=== PATIENT | female | born 1960 | race Caucasian/White ===

== ENCOUNTER 2019-12-06 01:51 | Inpatient (IN) | payer OTHER, SELFPAY ==
[2019-12-06] VITALS (18 sets, daily range): BP systolic 103–154; BP diastolic 50–72; PULSE 83–110; RESP 16–20; TEMP 36.8–39.4; O2SAT 92–98; BMI 32.8
--- NOTE | ~2019-12-06 | XR_ITS ---
EXAMINATION: XR chest 2V DATE: 12/06/2019 02:11 INDICATION: Cough. Shortness of breath. Fever. TECHNIQUE: Frontal and lateral views of the chest were obtained. COMPARISON: None. FINDINGS: There are airspace opacities in right mid and lower lung zones and left lower lung zone. No pleural effusion or pneumothorax. The heart size is normal. IMPRESSION: 1. Airspace opacities in right mid and lower lung zones and left lower lung zone, consistent with pne umonia. Reviewed, dictated and finalized at location A. IMPRESSION: 1. Airspace opacities in right mid and lower lung zones and left lower lung zon e, consistent with pneumonia.
--- NOTE | ~2019-12-06 | XR_ITS ---
EXAMINATION: XR chest 1V portable DATE: 12/08/2019 06:12 INDICATION: COVID-19 pneumonia. TECHNIQUE: A single frontal view of the chest was obtained. COMPARISON: Chest 2 views 12/06/2019 FINDINGS: There are patchy airspace opacities in all right lung zones and left lower lung zone with a peripheral predominance. No pleural effusion or pneumothorax. The heart size is normal. IMPRESSION: 1. Airspace opacities in right lung and left lower lung zone with worsening on the right, consistent with pneumonia. Reviewed, dictated and finalized at location A.
--- NOTE | 2019-12-06 02:02 | ECG_ITS ---
Measurements Intervals [place] Rate: 100 P: 16 TN: 130 QRS: 18 QRSD: 76 T: 32 QT: 329 QTc: 425 Interpretive Statements SINUS TACHYCARDIA NONSPECIFIC T-WAVE ABNORMALITY- INF/LAT LEADS BORDERLINE ECG Electronically Signed On 12-06-2019 7:35:10 CDT by Adama Shell D.O.
--- NOTE | 2019-12-06 02:08 | ED.SOB ---
HPI - SOB/Dyspnea General Chief Complaint: Shortness of Breath/Dyspnea Stated Complaint: sob Time Seen by Provider: 12/06/19 01:54 History of Present Illness HPI Narrative: Patient presents with her for shortness of breath. She also has a cough for 3 weeks. she had fever at home. She has shortness of breath for couple days. She had a COVID test 3 weeks ago that was negative. She does not work outside the home. Her appetite is fine. She has no pain. She has not had her pneumonia shot. Type 2 diabetes and wears a pod on her arm. She does not smoke cigarettes, drink alcohol, or drugs. She has not had a surgery. MD elicited complaint: shortness of breath and cough Pertinent past history: diabetes Onset (ago): week(s) Context: recent illness Timing: constant Severity: moderate Exacerbating factors: coughing Relieving factors: nothing Known history of: diabetes Related Data Allergies Allergy/AdvReac Type Severity Reaction Status Date / Time adhesive AdvReac Mild REDNESS Verified 12/30/18 11:29 AND BURNING ON SKIN Review of Systems Review of Systems: Narrative: CONSTITUTIONAL: She has had fever, chills, and sweats. EYES: Denies visual changes, redness, or discharge. ENT: Denies rhinorrhea, congestion, sore throat, or otalgia. CARDIOVASCULAR: Denies chest pain, palpitations, or edema. RESPIRATORY: She has cough and dyspnea. GASTROINTESTINAL: Denies abdominal pain, nausea, vomiting, or diarrhea. GENITOURINARY: Denies dysuria or hematuria. SKIN: Denies rash or itching. MUSCULOSKELETAL: Denies back pain, joint pain, or myalgia. NEUROLOGIC: Denies headache, numbness, or weakness. . All systems reviewed & are unremarkable except as noted in HPI and below PMFSH Past Medical History Medical History Community acquired pneumonia Type 2 diabetes mellitus Surgical History Surgical History (Updated 12/06/19 @ 02:24 by Christine Nevarez MD) No pertinent past surgical history Social History Social History Smoking status: Never smoker Alcohol intake: current Exam Narrative: Exam Narrative: GENERAL: Well-appearing, well-nourished, and in no acute distress. Overweight HEAD: Normocephalic, atraumatic. EYES: PERRLA and EOMI. ENT: Nares clear, no rhinorrhea or epistaxis. Mucous membranes moist. NECK: Supple. CHEST: Crackles throughout the right posterior lung moralez. no respiratory distress. HEART: Regular rate and rhythm. No murmur heard. Normal peripheral pulses. ABDOMEN: Soft, nontender, nondistended, normal active bowel sounds. EXTREMITIES: Normal range of motion. No edema. SKIN: Warm, dry, no rash. NEURO: No focal deficits. Alert and oriented x3. PSYCH: Normal mood and affect. Course Consultations Consultation #1: Call Dr. Nava for admission for community-acquired pneumonia rule out COVID. He requests anABG to detemine the amount of hypoxia. Date: 12/06/19 Time: 02:25 Vital Signs Vital signs: Vital Signs Temperature 98.3 F 12/06/19 01:56 Pulse Rate 98 12/06/19 01:56 Respiratory Rate 20 12/06/19 01:56 Blood Pressure 154/68 H 12/06/19 01:56 Pulse Oximetry 94 12/06/19 01:56 Temperature 98.3 F 12/06/19 01:56 Pulse Rate 98 12/06/19 01:56 Respiratory Rate 20 12/06/19 01:56 Blood Pressure 154/68 H 12/06/19 01:56 Pulse Oximetry 94 12/06/19 01:56 MDM - SOB/Dyspnea Medical Records Attestation: I reviewed the patient's medical records. Lab Data Attestation: I reviewed the patient's lab results. Result diagrams: 12/06/19 02:04 12/06/19 02:04 Labs: Lab Results 12/06/19 12/06/19 Range/Units 02:04 02:04 WBC 5.1 (4.5-10.0) K/mm3 RBC 4.48 (4.2-5.4) M/mm3 Hgb 12.7 (12.0-15.0) g/dL Hct 39.1 (37.0-47.0) % MCV 87.3 (80-100) fl MCH 28.3 (26-34) pg MCHC 32.5 (32-36) g/dl RDW 12.9 (11.5-14.5) %
[2019-12-06 02:12] LABS: Basophils Percent Auto 0.2 % (0.2-1.2); Eosinophils Percent Auto 0.6 % (0-4.4); Hematocrit 39.1 % (37.0-47.0); Hemoglobin 12.7 g/dL (12.0-15.0); Immature Granulocyte Absolute 0.04 K/mm3 (0.00-0.031); Immature Granulocyte Percent A 0.8 % (0-0.5); Lymphocytes Absolute Auto 1.83 K/mm3 (0.9-3.2); Lymphocytes Percent Auto 35.7 % (18.3-44.2); Mean Corpuscular HGB Conc 32.5 g/dl (32-36); Mean Corpuscular Hemoglobin 28.3 pg (26-34); Mean Corpuscular Volume 87.3 fl (80-100); Monocytes Absolute Auto 0.3 K/mm3 (0.1-0.6); Monocytes Percent Auto 6.4 % (2.6-8.5); Neutrophils Absolute Auto 2.9 K/mm3 (1.3-6.7); Neutrophils Percent Auto 56.3 % (45.5-73.1); Platelet Count Result 177 k/mm3 (150-375); Red Blood Count 4.48 M/mm3 (4.2-5.4); Red Cell Distribution Width 12.9 % (11.5-14.5); White Blood Count 5.1 K/mm3 (4.5-10.0)
[2019-12-06 02:25] LABS: Blood Urea Nitrogen 9 mg/dL (7-17); Calcium 7.9 mg/dL (8.4-10.2); Carbon Dioxide 27 mmol/L (22-30); Chloride 104 mmol/L (98-107); Estimated CRCL calculation 81 ml/min; Estimated Glomerular Filt Rate > 60; Glucose 150 mg/dL (65-105); Potassium 4.2 mmol/L (3.4-5.0); Sodium 138 mmol/L (137-145)
[2019-12-06 02:51] LABS: Lactic Acid 0.6 mmol/L (0.7-2.1)
[2019-12-06 03:31] LABS: Alveolar/Arterial O2 Gradient 41.1 mmHg; Base Excess ABG 0.3 mEq/l (+/-2.0); Fractional Inspired Oxygen 21 %; HCO3 ABG 21.6 mEq/l (22.0-26.0); Oxygen Content ABG 16.6 %vol (16.0-22.0); Oxygen Saturation ABG 96.9 % (95.0-100.0); Oxyhemoglobin 95.7 % THb (90.0-100.0); PCO2 ABG 25.9 mmHg (35.0-45.0); PO2 ABG 77.6 mmHg (80.0-100.0); Total Hemoglobin 12.3 g/dL (12.0-18.0)
[2019-12-06 03:33] LABS: Device ROOM AIR; Modified Allen's Test Pass; Site Drawn RIGHT RADIAL
--- NOTE | 2019-12-06 03:41 | PM.IMHP ---
H&P: HPI History of Present Illness Chief complaint: pneumonia Narrative: This is a 59 year old Diabetic female who presented to the hospital with a complaint of shortness of breath for the past 2 days with associated nonproductive coughing. She has had fever for the past week at home and also complains of fatigue and generalized weakness. The patient was tested for COVID-19 three weeks ago which was negative. She denies any significant wheezing, chest pain, abdominal pain, nausea, vomiting, dysuria, diarrhea, LE swelling, or rectal bleeding. The patient has been saturating between 94-97% on room air in the ER tonight and was evaluated. CXR demonstrated patchy right lung airspace opacities in the middle and lower lobe. The patient has been started on antibiotics and swabbed for COVID-19. We have been asked to admit the patient to the hospital for further treatment. On my encounter with the patient she is resting comfortably on room air with occasional cough. She has no other complaints. Review of Systems Review of Systems: All systems reviewed & are unremarkable except as noted in HPI and below PMFSH Past Medical History Medical History Community acquired pneumonia Type 2 diabetes mellitus Surgical History Surgical History No pertinent past surgical history Social History Social History Smoking status: Never smoker Alcohol intake: current Comments Family medical history reviewed and noncontributory. Meds Home Medications and Allergies Allergies Allergy/AdvReac Type Severity Reaction Status Date / Time adhesive AdvReac Mild REDNESS Verified 12/30/18 11:29 AND BURNING ON SKIN Vital Signs Vital Signs - 24 hr 12/06/19 01:56 12/06/19 02:40 12/06/19 03:14 Temperature 36.8 C Pulse Rate 98 83 96 Respiratory Rate 20 20 Blood Pressure 154/68 H 111/72 124/65 Pulse Oximetry 94 98 96 Exam Const: General: cooperative, alert, awake, ill appearing, tired appearing and uncomfortable Nutritional Appearance: obese Orientation/consciousness: patient oriented x3 HENMT: Head: normal to inspection General nose exam: Normal external nose present Face and sinus: normal facial exam Mouth: Yes Normal oral and palatal mucosa present and Yes oropharynx normal Eyes: Pupils: Equal, round and reactive pupils present EOM: EOMs intact bilaterally Neck: Neck: supple and no JVD Thyroid: thyroid normal Lymphatic: lymphadenopathy not noted Resp: Effort & Inspection: tachypneic Auscultation: rales on the right and diffuse Cardio: Rate: regular rate Rhythm: regular rhythm Heart sounds: no murmurs GI: Inspection: normal to inspection Auscultation: normal bowel sounds Skin: General skin exam: normal color and no rashes or lesions noted Neuro: General: patient oriented x3 Cranial nerves: Yes CN's II-XII intact bilaterally and Yes Equal, round and reactive pupils present Speech: normal speech Motor exam (neuro): 5/5 motor strength present throughout Sensory Exam: normal sensation Extrem: General: normal to inspection and no edema Psych: Mental Status: mental status grossly normal Affect: normal affect H&P: Results Labs Labs: Short CBC 12/06/19 Range/Units 02:04 WBC 5.1 (4.5-10.0) K/mm3 Hgb 12.7 (12.0-15.0) g/dL Hct 39.1 (37.0-47.0) % Plt Count 177 (150-375) k/mm3 BMP 12/06/19 02:04 Sodium 138 Potassium 4.2 Chloride 104 Carbon Dioxide 27 BUN 9 Creatinine 0.70 Glucose 150 H Calcium 7.9 L Imaging Chest x-ray: My impression: right sided airspace opacities in middle and lower lung moralez. Assessment and Plan Assessment and plan (1) Community acquired pneumonia: Qualifiers: Laterality: right Lung location: lower lobe of lung Qualified Code(s): J18.9 - Pneumonia, un
--- NOTE | 2019-12-06 04:19 | ADMGEN ---
This patient, Mayra Rivera, was admitted to [facility] Surg Room 331-01. Patient/family oriented to hospital policies and general routines including ID bracelet, bed and alarms, visiting hours, pain management, procedures, bathroom and other care routines, personal items, smoking policy, room service/diet, and visiting hours. Valuables list has been completed. Information on how to activate the Rapid Response Team has been discussed. Patient/Family are encouraged to report perceived risks to care and to ask questions if they do not understand what they are told or what they should do.
[2019-12-06] MEDS: guaiFENesin/DEXTROMETHORPHAN 10 ML UDC 5 ML PO ×2 (04:38→20:07)
[2019-12-06] MEDS: ALBUTEROL SULFATE (*SP) AEROSOL 1 PUFF 2 PUFF INHALATION (04:51)
[2019-12-06 05:01] LABS: Prothrombin Time 12.5 Seconds (11.1-14.7)
[2019-12-06 05:05] LABS: Alanine Aminotransferase 16 U/L (4-35); Aspartate Amino Transferase 40 U/L (14-36); CRP 4.3 mg/dL (<1.0); Lactate Dehydrogenase 594 U/L (313-618)
[2019-12-06 05:08] LABS: Erythrocyte Sedimentation Rate 78 mm/hr (0-20)
[2019-12-06] MEDS: ASPIRIN 81 MG ENTERIC TABLET PO (09:11)
[2019-12-06] MEDS: lisinopriL 5 MG TABLET PO (09:11)
[2019-12-06] MEDS: SIMVASTATIN 20 MG TABLET 40 MG PO (09:11)
[2019-12-06] MEDS: ACETAMINOPHEN 325 MG TABLET 650 MG PO ×3 (09:30→22:42)
[2019-12-06 09:34] LABS: Glucose Point of Care 165 (65-105)
[2019-12-06] MEDS: ENOXAPARIN 40 MG/0.4 ML SYRINGE SUB-Q ×2 (12:32→20:08)
[2019-12-06 13:41] LABS: Glucose Point of Care 152 (65-105)
[2019-12-06 14:26] LABS: SARS-CoV-2 RNA PCR Positive
--- NOTE | 2019-12-06 14:49 | PC.NURSE ---
Called and notified Dr. Crawford that patient COVID test is positive
--- NOTE | 2019-12-06 15:48 | PM.IMPN ---
Progress Note: A&P Assessment and Plan (1) Community acquired pneumonia: Qualifiers: Laterality: right Lung location: lower lobe of lung Qualified Code(s): J18.9 - Pneumonia, unspecified organism Code(s): J18.9 - Pneumonia, unspecified organism Status: Acute Assessment and Plan: CURB-65 score = 0. Looked to be more bacterial with more right-sided pneumonia and normal inflammatory markers but COVID was positive. The patient is currently saturating between 94-97% oxygen on room air and does not appear to be requiring any supplemental oxygen. She is nontoxic appearing. . Continue MDI bronchodilators. Continue antibiotics for now since infiltrates are right-sided and does have the low markers. Check sputum culture and blood culture. Continue supportive care Did tell the patient if she continues to do well could probably be discharge 12/06. 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 Eight days into illness DVT prophylaxis will be Lovenox Q 12 with the COVID hypercoagulable tendency Subjective Date/time seen: 12/06/19 15:48 Interval history: Date of visit 12-05. 59-year-old type 2 diabetic on insulin pump with history of asthma presents to the emergency room with 1 week history some dry cough and fever and 2 days history of increasing shortness of breath. In the emergency room she was found to have primarily right-sided infiltrates cultured started on antibiotics and admitted. She was not hypoxic with room air sats at 95%. Today she feels pretty good but still has a little bit of cough but comfortable at rest. Exam Narrative: Exam Narrative: Blood pressure 118/56 pulse is 94 saturating 95% on room air temperature 38.1? respirations 16 nonlabored Sitting up in bed comfortable Pupils equal reactive to light sclera anicteric Lungs faint dry crackles right posterior base CV regular rate rhythm Abdomen soft nontender Extremities without edema distal pulses are 2+ Neuro alert pleasant cooperative no focal deficits Objective Data Vital Signs Vital Signs: Vital Signs - 24 hr 12/06/19 01:56 12/06/19 02:40 12/06/19 03:14 Temperature 36.8 C Pulse Rate 98 83 96 Respiratory Rate Blood Pressure 154/68 H 111/72 124/65 Pulse Oximetry 94 98 96 12/06/19 03:47 12/06/19 04:03 12/06/19 04:30 Temperature 37.4 C Pulse Rate 90 93 Respiratory Rate 16 18 Blood Pressure 127/58 L 129/54 L Pulse Oximetry 93 95 94 12/06/19 04:57 12/06/19 07:33 12/06/19 09:30 Temperature 37.6 C 37.4 C Pulse Rate 94 96 Respiratory Rate 16 Blood Pressure 103/50 L Pulse Oximetry 95 12/06/19 10:00 12/06/19 14:00 Temperature 37.4 C 38.1 C H Pulse Rate 100 95 Respiratory Rate 16 16 Blood Pressure 131/66 119/54 L Pulse Oximetry 96 95 Intake/Output Intake/Output: Intake & Output 12/03/19 12/04/19 12/05/19 12/06/19 23:59 23:59 23:59 23:59 Intake Total 470 Output Total 300 Balance 170 Meds/Results Medications: Active Medications Generic Name Dose Route Start Last Admin Trade Name Freq PRN Reason Stop Dose Admin Acetaminophen 650 mg 12/06/19 04:00 12/06/19 09:30 Tylenol Tablet PO 650 mg Q4H PRN Administration Mild Pain (1-3) or Fever Albuterol 2 puff 12/06/19 04:01 12/06/19 04:51 Proventil Hfa INHALATION 2 puff QIDRT PRN Administration Shortness Of Breath Aspirin 81 mg 12/06/19 09:00 12/06/19 09:1
[2019-12-07] VITALS (19 sets, daily range): BP systolic 97–132; BP diastolic 47–65; PULSE 87–99; RESP 18–20; TEMP 36.8–38.8; O2SAT 94–95
[2019-12-07] MEDS: ACETAMINOPHEN 325 MG TABLET 650 MG PO ×4 (02:42→19:01)
[2019-12-07 06:13] LABS: Eosinophils Percent Auto 0.5 % (0-4.4); Hematocrit 35.7 % (37.0-47.0); Hemoglobin 11.5 g/dL (12.0-15.0); Immature Granulocyte Absolute 0.04 K/mm3 (0.00-0.031); Lymphocytes Absolute Auto 1.41 K/mm3 (0.9-3.2); Lymphocytes Percent Auto 33.6 % (18.3-44.2); Mean Corpuscular HGB Conc 32.2 g/dl (32-36); Mean Corpuscular Hemoglobin 28.3 pg (26-34); Mean Corpuscular Volume 87.9 fl (80-100); Mean Platelet Volume 9.6 fl (7.4-10.4); Monocytes Absolute Auto 0.3 K/mm3 (0.1-0.6); Monocytes Percent Auto 6.9 % (2.6-8.5); Neutrophils Absolute Auto 2.4 K/mm3 (1.3-6.7); Platelet Count Result 173 k/mm3 (150-375); Red Blood Count 4.06 M/mm3 (4.2-5.4); Red Cell Distribution Width 13.2 % (11.5-14.5); White Blood Count 4.2 K/mm3 (4.5-10.0)
[2019-12-07 06:18] LABS: D Dimer 1.36 ug/mL (<0.48)
[2019-12-07 06:30] LABS: Alanine Aminotransferase 13 U/L (4-35); Albumin Level 3.4 g/dL (3.5-5.1); Alkaline Phosphatase 77 U/L (38-126); Aspartate Amino Transferase 38 U/L (14-36); Bilirubin,Total < 0.1 mg/dL (0.2-1.3); Blood Urea Nitrogen 10 mg/dL (7-17); Calcium 7.6 mg/dL (8.4-10.2); Carbon Dioxide 28 mmol/L (22-30); Chloride 103 mmol/L (98-107); Estimated CRCL calculation 94 ml/min; Estimated Glomerular Filt Rate > 60; Glucose 79 mg/dL (65-105); Lactate Dehydrogenase 555 U/L (313-618); Potassium 3.9 mmol/L (3.4-5.0); Sodium 138 mmol/L (137-145)
[2019-12-07 06:49] LABS: CRP 3.8 mg/dL (<1.0)
[2019-12-07 06:56] LABS: Vitamin D 25 Hydroxy 13.3 ng/mL
[2019-12-07] MEDS: ENOXAPARIN 40 MG/0.4 ML SYRINGE SUB-Q ×2 (08:03→20:46)
[2019-12-07] MEDS: SIMVASTATIN 20 MG TABLET 40 MG PO (08:04)
[2019-12-07] MEDS: lisinopriL 5 MG TABLET PO (08:04)
[2019-12-07] MEDS: ASPIRIN 81 MG ENTERIC TABLET PO (08:04)
--- NOTE | 2019-12-07 14:15 | PM.IMPN ---
Progress Note: A&P Assessment and Plan (1) Community acquired pneumonia: Qualifiers: Laterality: right Lung location: lower lobe of lung Qualified Code(s): J18.9 - Pneumonia, unspecified organism Code(s): J18.9 - Pneumonia, unspecified organism Status: Acute Assessment and Plan: CURB-65 score = 0. Looked to be more bacterial with more right-sided pneumonia and normal inflammatory markers but COVID was positive. The patient is currently saturating between 92-97% oxygen on room air. She remains nontoxic appearing. Continue MDI bronchodilators. Continue antibiotics for now but still having fevers. Blood culture NGTD. Continue supportive care. Home when fever curve improves. Repeat CXR in the morning. (2) COVID-19: Code(s): U07.1 - COVID-19 Status: Acute Assessment and Plan: As above. Patient remainis on room air with good O2 sats so does not qualify for decadron or remdesivir treatment. CRP 4.3 and better today; LDH normal; Ferritin normal. Symptoms started on 11/28 (Day 9). Still having fevers. Continue DVT prophylaxis with Lovenox Q 12 with the COVID hypercoagulable tendency. 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 Glucose reasonable. She is back on her insulin pump. Start sliding scale protocol. Subjective Date/time seen: 12/07/19 14:15 Interval history: 59-year-old type 2 diabetic on insulin pump with history of asthma presents to the ER with 1 week history some dry cough and fever and 2 days history of increasing SOB and found to have COVID. Assuming care. Chart reviewed. Still with fever overnight. Also having diarrhea without n/v. No CP or SOB. No CARDENAS. Occasional nonproductive cough. Eating okay. Exam Narrative: Exam Narrative: Tm 102.9 101.4 111/63 87 18 94% ra Gen - NARD sitting up in chair Chest - distatn , clear BS. Nml RR CV - RRR S1/S2 Abd - Soft, NT/ND, Positive BS Ext - No pedal edema Neuro - Alert and oriented. Nonfocal exam. Psych - Nml mood and affect Skin - Warm and dry Objective Data Vital Signs Vital Signs: Vital Signs - 24 hr 12/06/19 18:00 12/06/19 18:09 12/06/19 20:00 Temperature 102.9 F H 102.9 F H 98.8 F Pulse Rate 96 Respiratory Rate 18 Blood Pressure 113/57 L Pulse Oximetry 97 12/06/19 20:51 12/06/19 22:00 12/06/19 22:42 Temperature 100.6 F H 100.6 F H Pulse Rate 110 H Respiratory Rate 20 Blood Pressure 130/61 Pulse Oximetry 92 95 12/06/19 23:42 12/07/19 02:00 12/07/19 02:42 Temperature 98.8 F 101.3 F H 101.3 F H Pulse Rate 88 Respiratory Rate 20 Blood Pressure 121/59 L Pulse Oximetry 94 12/07/19 03:42 12/07/19 04:00 12/07/19 06:00 Temperature 99.2 F 99.9 F H Pulse Rate 88 Respiratory Rate 18 Blood Pressure 110/55 L Pulse Oximetry 94 95 12/07/19 06:36 12/07/19 07:36 12/07/19 08:00 Temperature 99.9 F H 99.9 F H 99.9 F H Pulse Rate 87 Respiratory Rate 18 Blood Pressure 111/63 Pulse Oximetry 94 12/07/19 13:13 Temperature 101.4 F H Pulse Rate Respiratory Rate Blood Pressure Pulse Oximetry Intake/Output Intake/Output: Intake & Output 12/04/19 12/05/19 12/06/19 12/07/19 23:59 23:59 23:59 23:59 Intake Total 1910 350 Output Total 300 150 Balance 1610 200 Meds/Results Medications: Active Medications Generic Name Dose Route Start Last Admin Trade Name Freq PRN Reason Stop Dose Admin Acetaminophen 650 mg 12/06/19 04:00 12/07/19 13:13 Tylenol Tablet PO 650 mg Q4H PRN Administration Mild Pain (1-3) or Fever [place]
[2019-12-07] MEDS: IBUPROFEN 400 MG TABLET PO (16:39)
[2019-12-07 18:23] LABS: Glucose Point of Care 147 (65-105)
[2019-12-07 21:26] LABS: Glucose Point of Care 256 (65-105)
[2019-12-08 02:00] VITALS: BP 107/44; PULSE 95; RESP 16; TEMP 37.8; O2SAT 93
[2019-12-08 02:33] VITALS: TEMP 37.8
[2019-12-08] MEDS: ACETAMINOPHEN 325 MG TABLET 650 MG PO ×2 (02:33→09:33)
[2019-12-08 03:33] VITALS: TEMP 37.7
[2019-12-08 06:00] VITALS: BP 98/42; PULSE 82; RESP 18; TEMP 37.6; O2SAT 96
[2019-12-08 08:00] VITALS: BP 108/49; PULSE 92; RESP 16; TEMP 37; O2SAT 94
[2019-12-08 08:43] LABS: Glucose Point of Care 80 (65-105)
[2019-12-08] MEDS: ENOXAPARIN 40 MG/0.4 ML SYRINGE SUB-Q (09:32)
[2019-12-08] MEDS: ASPIRIN 81 MG ENTERIC TABLET PO (09:33)
[2019-12-08] MEDS: lisinopriL 5 MG TABLET PO (09:34)
[2019-12-08] MEDS: SIMVASTATIN 20 MG TABLET 40 MG PO (09:34)
--- NOTE | 2019-12-08 12:52 | PM.DS ---
DS: Admitting Diagnosis Admitting Diagnosis Admitting Diagnosis: Pneumonia, unspecified organism DS: Discharge Diagnosis Discharge Diagnosis (1) Community acquired pneumonia: Qualifiers: Laterality: right Lung location: lower lobe of lung Qualified Code(s): J18.9 - Pneumonia, unspecified organism Code(s): J18.9 - Pneumonia, unspecified organism Status: Acute Assessment and Plan: CURB-65 score = 0. Looked to be more bacterial with more right-sided pneumonia and normal inflammatory markers but COVID was positive. The patient is currently saturating between 92-97% oxygen on room air. She remains nontoxic appearing. Had MDI bronchodilators available. Blood culture NGTD. Repeat CXR does showing worsening to the right lung field but patient remains relatively asymptomatic. Explained what to look for and need to return to the ER if having worsening SOB or higher fevers. (2) COVID-19: Code(s): U07.1 - COVID-19 Status: Acute Assessment and Plan: As above. Patient remains on room air with good O2 sats so did not qualify for decadron or remdesivir treatment. CRP 4.3 and better on repeat; LDH normal x2; Ferritin normal x2. Symptoms started on 11/28. DVT prophylaxis with Lovenox Q 12 with the COVID hypercoagulable tendency. Fever curve slowly improved. She felt comfortable with discharge plan. SHe voices understanding of the need to social distance and remain quarantened for 14 days once fever resolves. Left message with PCP. (3) Type 2 diabetes mellitus: Qualifiers: Diabetes mellitus complication status: without complication Diabetes mellitus ferry terminal agent insulin use: unspecified ferry terminal agent insulin use status Qualified Code(s): E11.9 - Type 2 diabetes mellitus without complications Code(s): E11.9 - Type 2 diabetes mellitus without complications Status: Acute Assessment and Plan: Glucose reviewed closely and remained reasonable. We resumed her insulin pump. DS: Summary Hospital Course Reason for hospitalization: 59yo female here for fever and SOB and found to have COVID. Please see H&P for details. Hospital Course: As above Time Spent with Patient Time attestation: Total time spent providing and/or coordinating discharge services: 34 minutes Time spent: Greater than 30 minutes Specific discharge activities: Long discussion with patient. Left message with PCP. Exam Narrative: Exam Narrative: 98.6 108/49 92 16 94% ra Gen - NARD Chest - clear, distant BS CV - RRR S1/S2 Abd - Soft, NT/ND, Positive BS Ext - No pedal edema Psych - Nml mood and affect Skin - Warm and dry DS: Data Data Completed and Pending Labs on day of discharge: Labs from last 24 hours 12/08/19 12/07/19 12/07/19 08:07 20:54 17:56 POC Capillary Glucose 80 256 H 147 H Preliminary micro results at discharge 12/06/19 02:32 Blood Culture - Preliminary Blood 12/06/19 02:31 Blood Culture - Preliminary Blood Discharge Plan Discharge Attending physician on discharge: Jona Watkins Discharging Clinician: Jona Watkins Activity: as tolerated Diet: diabetic Discharge Medications: New azithromycin 250 mg tablet 250 mg PO DAILY 3 Days Qty: 3 RF: 0 Continued aspirin 81 mg Tablet,Delayed Release (Dr/Ec) 81 mg PO DAILY RF: 0 simvastatin 40 mg tablet 40 mg PO DAILY RF: 0 lisinopril 5 mg tablet 5 mg PO DAILY RF: 0 insulin lispro [Humalog U-100 Insulin] 100 unit/mL solution 100 unit continuous subcutaneous infusion DAILY RF: 0 Farxiga 10 mg tablet 10 mg PO DAILY RF: 0 Date of admission: 12/07/19 15:30 Primary Care Provider: Stuart Espinosa Admitting Provider: Stuart Nava Attending physician on admission: Jona Watkins Condition: Stable Quality VTE Prophylaxis VTE prophylaxis: mechanical ordered
[2019-12-08 12:58] LABS: Glucose Point of Care 134 (65-105)
[2019-12-09 21:18] LABS: Pneumococcal Antigen Urine Not Detected (Not Detected)
--- NOTE | 2019-12-10 10:44 | PC.NURSE ---
Urine Pneumococcal is negative.
[2019-12-10 15:10] LABS: Legionella pneumophila Ag Ur Not Detected (Not Detected)
--- NOTE | 2019-12-13 11:15 | PC.NURSE ---
Urine Legionella is negative.
--- NOTE | 2019-12-16 12:00 | PC.NURSE ---
patient did not take personal insulin home with her at discharge. Patient notified that insulin was here. Patient states that she did not need the insulin, she would not pick it up, and to dispose of the insulin. Insulin disposed at this time per patient request.
== END 2019-12-08 14:20 | disposition home or self-care (01) | DRG 177 ==
LOC: ANHED 03:31 → ANH3MEDSUR 03:45
PROVIDERS: Internal Medicine; Admitting Provider Family Medicine; Emergency Provider Emergency Medicine; PCP Internal Medicine; Visit Provider Internal Medicine
DX: U07.1 COVID-19 (principal); J12.89 Other viral pneumonia; E11.9 Type 2 diabetes mellitus without complications; Z79.4 Long term (current) use of insulin; Z96.41 Presence of insulin pump (external) (internal)
CPT/HCPCS: 36415; 36600; 71045; 71046; 80048; 80053; 82306; 82728; 82805; 83605; 83615; 84450; 84460; 85025; 85380; 85610; 85652; 85730; 86140; 87040; 87449; 87635; 87899; 93005; 94640; 96365; 96367; 96372; 99285; A9270; C9803; G0378; J0456; J0696; J1650; J7060; U0003

== ENCOUNTER 2020-01-06 11:05 | Outpatient (CLI) | payer OTHER, SELFPAY ==
--- NOTE | ~2020-01-06 | XR_ITS ---
EXAMINATION: XR chest 2V DATE: 01/06/2020 11:41 INDICATION: COVID-19 pneumonia. Follow-up. TECHNIQUE: Frontal and lateral views of the chest were obtained. COMPARISON: Chest single view 12/08/2019 FINDINGS: The chest demonstrates clear lungs without pneumonia, pleural effusion, or pneumothorax. Th e heart size is normal. IMPRESSION: 1. No acute cardiopulmonary disease. Reviewed, dictated and finalized at location A.
== END 2020-01-06 11:06 | disposition home or self-care (01) ==
PROVIDERS: PCP Internal Medicine; Visit Provider Nurse Practitioner
DX: J18.9 Pneumonia, unspecified organism (principal)
CPT/HCPCS: 71046

== ENCOUNTER 2023-11-14 11:34 | Emergency (ER) | payer OTHER, SELFPAY ==
[2023-11-14 11:50] VITALS: BP 118/65; PULSE 105; RESP 16; TEMP 36.6; O2SAT 100
--- NOTE | 2023-11-14 12:20 | ED.SKABFB ---
HPI - Skin/Abscess/Foreign Bdy General Chief complaint: Skin/Abscess/Foreign Body Stated complaint: Cyst Left Brest Source: patient Mode of arrival: ambulatory Limitations: no limitations History of Present Illness HPI narrative: 63-year-old female presented for complaint of red painful cyst to the left upper abdomen. She states she has had a cyst in the area of for years, but states that it felt irritated over the past week so she tried to ?mess with it. ? States she pushed on it and used heat to the site. And then it became more red and tender. Denies active drainage. History of a boil in the past. Related Data Home Medications Medication Instructions Recorded Confirmed aspirin 81 mg tablet,delayed 81 mg PO DAILY 12/06/19 11/09/20 release dapagliflozin propanediol 10 mg 10 mg PO DAILY 12/06/19 11/09/20 tablet (Farxiga) insulin lispro 100 unit/mL 100 unit continuous subcutaneous 12/06/19 11/09/20 subcutaneous solution (Humalog infusion DAILY U-100 Insulin) lisinopril 5 mg tablet 5 mg PO DAILY 12/06/19 11/09/20 simvastatin 40 mg tablet 40 mg PO DAILY 12/06/19 11/09/20 Allergies Allergy/AdvReac Type Severity Reaction Status Date / Time adhesive AdvReac Mild REDNESS Verified 12/06/19 05:08 AND BURNING ON SKIN Review of Systems Review of Systems: CONSTITUTIONAL: Denies body aches, fever, chills, or sweats. EYES: Denies visual changes, redness, or discharge. ENT: Denies rhinorrhea, congestion CARDIOVASCULAR: Denies chest pain, palpitations, or edema. RESPIRATORY: Denies cough or dyspnea. GASTROINTESTINAL: Denies abdominal pain, nausea, vomiting, or diarrhea. SKIN: Reports boil left breast/abdomen MUSCULOSKELETAL: Denies back pain, joint pain, or myalgia. NEUROLOGIC: Denies headache, numbness, tingling, or weakness. [facility] Past Medical History Medical History Abnormal stress test Community acquired pneumonia Herpes zoster without complication Type 2 diabetes mellitus Surgical History Surgical History History of abdominal surgery elena castillo History of appendectomy 07/2020 No pertinent past surgical history Family History Family History Father Acute myocardial infarction Diabetes mellitus Social History Social History Smoking status: Never smoker Alcohol intake: current Substance use: never Spiritual care concerns: No Comments At time of signature, I have reviewed and agree with nursing past medical, surgical, social and family history unless otherwise noted. Please see nursing chart for further information. There is no relevant family history pertinent to the presenting complaint Exam Narrative: GENERAL: Well-appearing EYES: conjunctivae clear, and EOMI. ENT: Mucous membranes moist. Oropharynx without edema, erythema or lesions. CHEST: Clear to auscultation. HEART: Regular rate and rhythm. SKIN: Warm, dry. Left upper abdomen with 5 cm area of erythema, 2 cm diameter area of raised fluctuant abscess at center, tender, no active drainage. NEURO: Alert and oriented x3. Chest: Chest/axillae images: 1. area of induration and fluctuant abscess Course Course Emergency Course: Patient is aware of diagnosis, understands and agrees to treatment plan. Anticipatory guidance given. Patient agrees to follow-up as directed and is aware of reasons to seek care at the emergency department. Portions of this record may have been created with voice recognition software Level of Care: Express Care Visit Vital Signs Vital signs: Vital Signs Temperature 98 F 11/14/23 11:50 Pulse Rate 105 H 11/14/23 11:50 Respiratory Rate 16 11/14/23 11:50 Blood Pressure 118/65 11/14/23 11:50 Pulse Oximetry 100 11/14/23 11:50
[2023-11-14] MEDS: LIDOCAINE HCL 1% LOCAL INJ 2 ML AMPUL 4 ML INFILTRATE (13:04)
== END 2023-11-14 13:05 | disposition home or self-care (01) ==
PROVIDERS: Emergency Provider Nurse Practitioner Family; PCP Internal Medicine
DX: L02.211 Cutaneous abscess of abdominal wall (principal); E11.9 Type 2 diabetes mellitus without complications; Z79.4 Long term (current) use of insulin; Z79.82 Long term (current) use of aspirin
CPT/HCPCS: 10060; 87070; 87075; 87076; 87205; 99203; G0463

== ENCOUNTER 2024-06-18 08:16 | Outpatient (CLI) | payer OTHER, SELFPAY ==
--- OUTSIDE RECORDS SUMMARY | 2024-06-18 08:26 | XMS_ITS | Referral Summary ---
Author Organization [address] Address [address] [place] [id number] Care Team Providers [employer] Coordinator Name Role Phone Stuart Espinosa DO Primary Care Provider [phone] Adeel Benitez MD Unavailable Encounters Date Type Department Care Team Description 06/09/2024 Telephone [facility] Diabetes and Endocrinology [address] [place] [id number] Aure Schwartz PHARMACY SERVICES DIRECTOR Prior Auth (Freestyle Dayanara 3 Sensor) 04/12/2024 Telephone [facility] [address] [place] [id number] Aure Schwartz NP Prior Auth (Phentermine) from Last 3 Months Allergies Active Allergy Reactions Criticality Noted Date Comments Semaglutide Flatulence Medium 03/25/2023 Sskryxn-Ilo-Cnn Reductase Inhibitors Muscle pain High 04/17/2021 Medications multivitamin-C y-bfft-[id number] s tablet Take by mouth Active omega 7-whj-iax-fish oil 100-150-750 mg capsule Take by mouth 2 (two) times a day Active insulin degludec (TRESIBA) 200 unit/mL (3 mL) pen for injection Inject 0.35 mL (70 Units total) under the skin nightly Use in case of insulin pump failure 3 mL 03/10/20 22 Active alirocumab (Praluent Pen) 150 mg/mL pen injector Inject 150 mg under the skin every 14 (fourteen) days 12 mL 1 01/18/20 22 Active flash glucose scanning reader miscIndication s:Type 2 diabetes mellitus with hyperglycemia, with long-term current use of insulin ([facility]) Freestyle Dayanara 3 reader for continuous glucose monitoring. 1 each 08/07/19 23 Active insulin lispro (HumaLOG) 100 unit/mL pen for injectionIndic ations:Type 2 diabetes mellitus with hyperglycemia, with long-term current use of insulin ([facility]) INJECT 6 UNITS UNDER THE SKIN 3 (THREE) TIMES A DAY WITH MEALS W/ SLIDING SCALE FOR SUGARS OVER 180, TAKE 8 UNITS FOR SUGARS OVER 220, TAKE 10 UNITS FOR SUGARS OVER 260, TAKE 12 UNITS FOR SUGARS OVER 300, TAKE 14 UNITS TDD: 42 15 mL 3 02/25/20 23 Active NovoLOG 100 unit/mL vial for injectionIndic ations:Type 2 diabetes mellitus with hyperglycemia, with long-term current use of insulin ([facility]) INJECT UP TO 100 UNITS UNDER THE SKIN DAILY VIA INSULIN PUMP 90 mL 1 05/20/19 24 Active erythromycin (ILOTYCIN) ophthalmic ointment APPLY A SMALL AMOUNT TO EFFECTED EYELID 3X PER DAY DIRECTED 12/05/19 24 Active semaglutide 0.25 mg or 0.5 mg (2 mg/3 mL) pen injector injectionIndic ations:type 2 diabetes mellitus Inject 0.5 mg under the skin every 7 days 9 mL 3 12/26/19 24 025 Active dapagliflozin propanediol (Farxiga) 10 mg tabletIndicati ons:Type 2 diabetes mellitus with hyperglycemia, with long-term current use of insulin ([facility]) Take 1 tablet (10 mg total) by mouth daily 90 tablet 3 12/26/19 24 Active phentermine 37.5 mg capsuleIndicat ions:Type 2 diabetes mellitus with hyperglycemia, with long-term current use of insulin ([facility]) Take 1 capsule (37.5 mg total) by mouth every morning 30 capsule 04/12/20 24 Active lisinopriL (PRINIVIL,ZEST RIL) 5 mg tabletIndicati ons:Type 2 diabetes mellitus with hyperglycemia, with long-term current use of insulin ([facility]) TAKE 1 TABLET DAILY 90 tablet 1 01/08/20 25 Active Dexcom G7 Sensor deviceIndicati ons:Type 2 diabetes mellitus with hyperglycemia, with long-term current use of insulin (HCC) Change sensor every 10 days 9 each 3 06/10/19 25 Active blood-glucose sensor (FreeStyle Dayanara 3 Sensor) deviceIndicati ons:Type 2 diabetes mellitus with hyperglycemia, with long-term current use of insulin (HCC) Change sensor every 14 days. 6 each 3 05/20/19 24 025 Discontinued(Al ternate therapy) lisinopriL (PRINIVIL,ZEST RIL) 5 mg tablet Take 1 tablet (5 mg total) by mouth daily 90 tablet 1 11/26/19 24 025 Discontinued Active Problems Problem Noted Date Diagnosed Date Class 1 obesity due to exces s calories with serious comorbidity and body mass index (BMI) of 30.0 to 30.9 in adult 07/23/2022 Assessment & Plan (07/23/2022 9:42 AM AMBULATORY CARE NURSE): Discussed healthy diet and importance of regular physical activity (20- 30min/day, 150min/wk). Other chest pain 01/25/2019 Abnormal stress test 12/21/2018 Hyperlipidemia associated with type 2 diabetes m ellitus 10/02/2017 Assessment & Plan (12/26/2023 9:43 AM CDT): Chronic problem, not currently taking anything for statin. Last lipid panel: 03/25/23 KMB=863, LO=006. Declines statin therapy. Assessment & Plan (07/15/2023 11:06 AM AMBULATORY CARE NURSE): Chronic problem, not currently taking anything for statin. Last lipid panel: 03/25/23 RCP=739, UP=030. Declines statin therapy. Discussed lifestyle changes to improve this number. The 10-year ASCVD risk score (Juan C DOBSON, et al., 2019) is: 10% Values used to calculate the score: Age: 63 years Sex: Female Is Non- : No Diabetic: Yes Tobacco smoker: No Systolic Blood Pressure: 122 mmHg Is BP treated: Yes HDL Cholesterol: 68 mg/dL Total Cholesterol: 302 mg/dL Assessment & Plan (03/25/2023 11:07 AM AMBULATORY CARE NURSE): Chronic problem, not currently taking anything for statin. Last lipid panel: 02/28/22 LDL=70, TG=88. Declines statin therapy. No changes at this time. Will update labs today. Verified that she uses [facility]. Aware to check results/results letter in [employer]. Will contact by phone if needed. Assessment & Plan (07/23/2022 10:09 AM AMBULATORY CARE NURSE): Chronic problem, well controlled on current Praulent 150mg every 14 days, Repatha 140mg every 14 days. Last lipid panel: 02/28/22 LDL=70, TG=88. Declines statin therapy. No changes at this time. Assessment & Plan (04/04/2022 2:55 PM AMBULATORY CARE NURSE): Chronic problem, statin intolerant but doing well with PCSK9i. Assessment & Plan (12/06/2021 2:48 PM CDT): Chronic problem. On Praluent now. Update lipid panel. Assessment & Plan (07/26/2021 11:48 AM AMBULATORY CARE NURSE): Low cholesterol low fat diet Can not tolerate statins Will try to get report of cardiac cath done a few years ago, to see if there is evidence of CAD, to we can appeal the denial of Repeaidaa by her insurance company Assessment & Plan (04/17/2021 2:55 PM AMBULATORY CARE NURSE): Severe Can not tolerate statins Will request PCSK9 - inhibitor , Repatha Assessment & Plan (12/05/2020 3:19 PM CDT): Goal of treatment , LDL cholesterol less than 100 ( less than 70 in patients with history of heart attacks and / or strokes ) NonHDL cholesterol ( total cholesterol minus HDL cholesterol ) goal less than 130 ( less than 100 in patients with history of heart attacks and / or strokes ) Low cholesterol, low fat diet was discussed and advised. Daily exercise On statin therapy with Simvastatin Assessment & Plan (07/25/2020 3:12 PM AMBULATORY CARE NURSE): Goal of treatment , LDL cholesterol less than 100 ( less than 70 in patients with history of heart attacks and / or strokes ) NonHDL cholesterol ( total cholesterol minus HDL cholesterol ) goal less than 130 ( less than 100 in patients with history of heart attacks and / or strokes ) Low cholesterol, low fat diet was discussed and advised. Daily exercise On statin therapy with Simvastastin Elevated LDL as 02/2020 Assessment & Plan (04/18/2020 4:38 PM AMBULATORY CARE NURSE): LDL above goal. Continue statin. Focus on diet. Assessment & Plan (01/06/2020 10:31 AM CDT): Will check lipid panel Assessment & Plan (02/16/2019 12:32 PM CDT): Goal of treatment , LDL cholesterol less than 100 ( less than 70 in patients with history of heart attacks and / or strokes ) NonHDL cholesterol ( total cholesterol minus HDL cholesterol ) goal less than 130 ( less than 100 in patients with history of heart attacks and / or strokes ) Low cholesterol, low fat diet was discussed and advised. Daily exercise On statin therapy Assessment & Plan (10/06/2018 3:04 PM CDT): Goal of treatment , LDL cholesterol less than 100 ( less than 70 in patients with history of heart attacks and / or strokes ) NonHDL cholesterol ( total cholesterol minus HDL cholesterol ) goal less than 130 ( less than 100 in patients with history of heart attacks and / or strokes ) Low cholesterol, low fat diet was discussed and advised. Daily exercise On statin therapy Assessment & Plan (06/23/2018 4:01 PM AMBULATORY CARE NURSE): Goal of treatment , LDL cholesterol less than 100 ( less than 70 in patients with history of heart attacks and / or strokes ) NonHDL cholesterol ( total cholesterol minus HDL cholesterol ) goal less than 130 ( less than 100 in patients with history of heart attacks and / or strokes ) Low cholesterol, low fat diet was discussed and advised. Daily exercise On statin therapy Assessment & Plan (10/02/2017 2:26 PM CDT): Goal of treatment , LDL cholesterol less than 100 ( less than 70 in patients with history of heart attacks and / or strokes ) NonHDL cholesterol ( total cholesterol minus HDL cholesterol ) goal less than 130 ( less than 100 in patients with history of heart attacks and / or strokes ) Low cholesterol, low fat diet was discussed and advised. Daily exercise On statin therapy Insulin pump status 02/27/2017 Assessment & Plan (12/26/2023 9:42 AM CDT): Pump setting changes: -change 6p to 530p and increased from 3.6 to 3.7 units/hr -lowered target from 140 to 120. Current medications: Farxiga 10mg daily Ozempic 0.25mg weekly Humalog via Medtronic 780G BR 12a 2.5, 530a 3, 1p 3.2, 530p 3.7 CR 6 CF 20 Target 120 Assessment & Plan (07/15/2023 11:04 AM AMBULATORY CARE NURSE): Again asked her to try the Guardian sensor in place of the FSL to work the MM 780G to its full capacity. No pump setting changes. Assessment & Plan (03/25/2023 11:06 AM AMBULATORY CARE NURSE): Asked her to try the Guardian sensor in place of the FSL to work the MM 780G to its full capacity. Assessment & Plan (07/23/2022 10:07 AM AMBULATORY CARE NURSE): No pump setting changes today. Assessment & Plan (12/06/2021 2:49 PM CDT): No pump setting changes. Assessment & Plan (07/26/2021 11:49 AM AMBULATORY CARE NURSE): Pt has insulin syringes and sample of Tresiba was given, she knows how to use it in case of insulin pump failure Assessment & Plan (04/18/2020 4:39 PM AMBULATORY CARE NURSE): Add 1 pm basal at 3.7 Change SF to 20 Assessment & Plan (01/07/2020 12:43 PM CDT): Increase MN basal to 2.8, 0530 to 3.4 = 79 units of basal insulin Assessment & Plan (11/16/2018 8:49 AM CDT): Insulin pump setting calculations as follows: Basal MN 2.7, 0530 3.2, 6 pm 3.5 Bolus: IC 7, SF 25, AI 4 T 100 Assessment & Plan (10/02/2017 2:26 PM CDT): Have long acting , basal insulin ( e.g. Lantus, Levemir, NPH, ) and insulin syringes as back up in case of pump failure If you have to take your insulin pump off for more than 12 h, start taking basal insulin, every 24 h ( take 80 % of the 24 h insulin delivered to you via insulin pump as calculated based on your basal rates ) and inject meal time insulin by injections, calculating the same way you do with your pump bolus ( according with carb intake and blood sugar readings ) Assessment & Plan (07/24/2017 2:35 PM AMBULATORY CARE NURSE): Alternate sites reviewed. OK to use abd even after abdominoplasty. Assessment & Plan (02/27/2017 10:56 AM CDT): D/t report of some overnight hypoglycemia sx, reduce MN basal to 3.35. No other changes. Instructed on use of temp basal feature. Type 2 diabetes mellitus wit h hyperglycemia, with long-term current use of insulin 08/10/2013 Overview (08/21/2016): DMII WO CMP UNCNTRLD Assessment & Plan (12/26/2023 9:41 AM CDT): Chronic problem, not at goal. A1c worsened from 7.5% 07/15/23 to now 7.9%. Can go days without bolusing. Discussed her to start bolusing more with intake or correctional bolus when you see blood sugar running high. Pump setting changes: -change 6p to 530p and increased from 3.6 to 3.7 units/hr -lowered target from 140 to 120. Current medications: Farxiga 10mg daily Ozempic 0.25mg weekly Humalog via [employer] 780G BR 12a 2.5, 530a 3, 1p 3.2, 530p 3.7 CR 6 CF 20 Target 120 UTD on labs. DM eye exam (05/29/23)--2nd request letter sent to get copy of report from [facility]. Sedentary lifestyle. Strive for regular exercise (30min most days) and diet (get at least 4-5 servings of fruit and veggies daily, avoid processed foods, increase lean protein intake and decrease carb portions as well as fruit juices, regular soda & desserts). Watch carbs and simple sugars. Check the blood sugar Freestyle dayanara 3. Check the feet daily for skin breakdown and infection. Assessment & Plan (07/15/2023 11:04 AM AMBULATORY CARE NURSE): Chronic problem, now at goal. A1c improved from 9.2% 03/2023 to now 7.5%. Discussed correctional boluses. Reviewed FSL download w/Anna during appt. Will resume ozempic at 0.25mg weekly as this dose did not cause any problems. Current medications: Farxiga 10 mg Ozempic 0.25mg weekly Humalog via [employer] 780G BR 12a 2.5, 530a 3, 1p 3.2, 6p 3.6 CR 6 CF 20 Target 140 UTD on labs. UTD on DM eye exam (05/29/23))--letter sent to get copy of report from [facility]. Sedentary lifestyle. Strive for regular exercise (30min most days) and diet (get at least 4-5 servings of fruit and veggies daily, avoid processed foods, increase lean protein intake and decrease carb portions as well as fruit juices, regular soda & desserts). Watch carbs and simple sugars. Check the blood sugar Freestyle dayanara. Check the feet daily for skin breakdown and infection. Assessment & Plan (03/25/2023 11:14 AM AMBULATORY CARE NURSE): Chronic problem, not at goal. Hyperglycemia. A1c increased from 6.8% 11/2022 to now 9.2%. Asked her to try the Guardian sensor again to allow MM 780G work to its full capability. Will need to increase bolusing if she is not going to try the new guardian sensor. Current medications: Farxiga 10 mg Humalog via Medtronic 780G BR 12a 2.5, 530a 3, 1p 3.2, 6p 3.6 CR 6 CF 20 Target 140 Will update labs. Verified that she uses [facility]. Aware to check results/results letter in [employer]. Will contact by phone if needed. UTD on DM eye exam. Strive for regular exercise (30min most days) and diet (get at least 4-5 servings of fruit and veggies daily, avoid processed foods, increase lean protein intake and decrease carb portions as well as fruit juices, regular soda & desserts). Watch carbs and simple sugars. Check the blood sugar Freestyle dayanara--try the Guardian sensor. Check the feet daily for skin breakdown and infection. Assessment & Plan (11/21/2022 4:23 PM CDT): Hba1c was Lab Results Component Value Date HGBA1C 6.8 11/21/2022 today, indicatingm a DM control Goal Hba1c and blood glucose explained Diet and exercise were advised Prevention and treatment of hyypoglcyemia were discussed with the patient Blood glucose monitoring : FSL Adjustment to medications: continue pump at current settings Pt wants to change back to MM Will try to start process Assessment & Plan (07/23/2022 10:07 AM AMBULATORY CARE NURSE): Chronic problem, not at goal. Hyperglycemia. Needs to start giving correctional boluses if not eating until 5p. Needs to check & give correctional bolus at HS. Has not been able to worm picker Ozempic but has not tried any different pharmacy. Sample given, will start at 0.25mg weekly x 2 weeks the increase to 0.5mg weekly. Current medications: Farxiga 10 mg Omnipod with NL BR: 12am 2.5, 530 am 3.0, 1pm 3.2, 6pm 3.6 CR 6 CF 20 T 100 AIT 4H Assessment & Plan (04/04/2022 3:11 PM AMBULATORY CARE NURSE): Chronic problem, not at goal. She continues to do rare aC boluses so has high PPG. We discussed at the very least doing a correction bolus before bed which she'll work on. She has been unable to get GLP1a with her insurance despite approval through our office. She is actually switching insurances next month, once she changes she'll let us know and we'll send in Ozempic again. This will help with appetite and PPG readings. Update MA/Cr today. Assessment & Plan (12/06/2021 2:50 PM CDT): Chronic problem, not at goal. Will see if Trulicity is covered on her insurance. Start 0.75 mg weekly x 2 weeks, sample given. Then increase to 1.5 mg. No pump setting changes today, but watch for lows with adding Trulicity. She knows she needs to work on improved bolusing habits. Update CMP. Assessment & Plan (07/26/2021 11:49 AM AMBULATORY CARE NURSE): Adequately controlled Continue pump at current settings rx for Ozempic 0.5 mg weekly was also sent. Assessment & Plan (04/17/2021 2:51 PM AMBULATORY CARE NURSE): Hba1c was Lab Results Component Value Date HGBA1C 7.2 04/17/2021 today, indicating suboptimal DM control Goal Hba1c and blood glucose explained Diet and exercise , discussed Prevention and treatment of hyypoglcyemia discussed. Blood glucose monitoring : DEXCOM Adjustment to oral medications: continue Farxiga New pump settings Basal rates 12am 2.5 530 am 3.0 1pm 3.2 6pm 3.6 T 100 IC??6?ISF 20 AIT 4H?? Restart Ozempic 0.5 mg weekly Pt to call in 3-4 wks, about her sugars, for changes to pump settings, if BG are lowering on Ozempic Assessment & Plan (12/05/2020 3:42 PM CDT): Hba1c was Lab Results Component Value Date HGBA1C 7.4 12/05/2020 today, indicating suboptimal DM control Goal blood sugars in the 120-150 range , with Hb1c under 7.0 % was explained 1800 calorie, consistent carb diet recommended. No more than 30-45 grams of carbs per meal recommended, as well as avoiding high concentrated sweet drinks . 25-45 min daily exercise, combining both aerobic and resistance exercise recommended. The need to monitor blood glucose before meals and bedtime was discussed. Prevention and treatment of hyypoglcyemia discussed. Continue pump at current settings Will try Ozempic Assessment & Plan (07/25/2020 3:13 PM AMBULATORY CARE NURSE): Hba1c was Lab Results Component Value Date HGBA1C 7.4 07/25/2020 today, indicating suboptimal DM control Goal blood sugars in the 120-150 range , with Hb1c under 7.0 % was explained 1800 calorie, consistent carb diet recommended. No more than 30-45 grams of carbs per meal recommended, as well as avoiding high concentrated sweet drinks . 25-45 min daily exercise, combining both aerobic and resistance exercise recommended. The need to monitor blood glucose before meals and bedtime was discussed. Prevention and treatment of hyypoglcyemia discussed. Continue OmniPod at current settings Farxiga Assessment & Plan (04/18/2020 4:40 PM AMBULATORY CARE NURSE): A1c worsening at 9.9. Intensify CF and add 1 pm basal. Continue Farxiga. Needs to be more focused on diet and exercise. Assessment & Plan (01/07/2020 12:43 PM CDT): A1c 9.6. 86% of TDD is basal. Emphasized importance of bolusing for all food. Will order Dexcom as she is unable to obtain adequate blood sample from finger sticks. Assessment & Plan (09/21/2019 12:37 PM CDT): Hba1c was Lab Results Component Value Date HGBA1C 8.6 09/21/2019 today, indicating inadequate DM control 1800 calorie, consistent carb diet recommended. No more than 30-45 grams of carbs per meal recommended, as well as avoiding high concentrated sweet drinks . 25-45 min daily exercise, combining both aerobic and resistance exercise recommended. The need to monitor blood glucose before meals and bedtime was discussed. Prevention and treatment of hyypoglcyemia discussed. Insulin dose: Continue pump at current settings There is data to based any changes on Needs to bolus with meals. Need to do BG monitoring ac and hs Will request DEXCOM again Assessment & Plan (02/16/2019 12:32 PM CDT): Hba1c was Lab Results Component Value Date HGBA1C 9.5 02/16/2019 today, indicating poor DM control 1800 calorie, consistent carb diet recommended. No more than 30-45 grams of carbs per meal recommended, as well as avoiding high concentrated sweet drinks . 25-45 min daily exercise, combining both aerobic and resistance exercise recommended. The need to monitor blood glucose before meals and bedtime was discussed. Prevention and treatment of hyypoglcyemia discussed. Insulin dose: Pump settings have been adjusted Importance of BG monitoring discussed rx for DEXCOM sent. Assessment & Plan (11/16/2018 8:50 AM CDT): Demonstrates appropriate ability to fill and insert infusion set. Understands concepts of basal vs. Bolus and is able to enter BG and carbs into pump. Has been provided with contact information for insulin pump employment program representative and how to reach our office after hours if any issues arise with BG. Has injectable basal insulin at home and understands to contact office in the event of pump failure so that appropriate basal dose can be determined. Advised follow up appt in office in one to two weeks so settings can be evaluated and adjusted as indicated. Face to face time = 60 minutes Greater than 50% of visit was spent counseling pt. Counseling consisted of ability to fill and insert infusion set. Assessment & Plan (10/06/2018 3:04 PM CDT): Hba1c was Lab Results Component Value Date HGBA1C 8.0 10/06/2018 today, indicating sub-optimal DM control 1800 calorie, consistent carb diet recommended 25-45 min daily exercise, combining both aerobic and resistance exercise recommended. The need to monitor blood glucose before meals and bedtime was discussed. Dose of basal and prandial insulin adjusted as follows: Bolus with meals, more regularly Prevention and treatment of hyypoglcyemia discussed. Assessment & Plan (06/23/2018 4:00 PM AMBULATORY CARE NURSE): Hba1c was Lab Results Component Value Date HGBA1C 9.3 06/23/2018 today, indicating worsening DM control 1800 calorie, consistent carb diet recommended 25-45 min daily exercise, combining both aerobic and resistance exercise recommended. The need to monitor blood glucose before meals and bedtime was discussed. Dose of basal and prandial insulin adjusted as follows: Need for BG monitoring and bolusing discussed at length Pt thinks things are changing, and she is bolusing more frequently Willing to work on BG monitoring. Would like to consider another insulin pump. Will look into OmniPod Prevention and treatment of hyypoglcyemia discussed. Assessment & Plan (03/17/2018 3:45 PM CDT): Hba1c was Lab Results Component Value Date HGBA1C 9.6 03/17/2018 today, indicating poor, worsening, DM control 1800 calorie, consistent carb diet recommended 30 min daily exercise, combining both aerobic and resistance exercise is strongly recommended and needed as part of diabetes management plan. The need to monitor blood glucose before meals and bedtime was discussed. Take prandial insulin before meals based on carb intake and blood glucose readings. Prevention and treatment of hyypoglcyemia discussed. Assessment & Plan (10/02/2017 2:25 PM CDT): Hba1c was Lab Results Component Value Date HGBA1C 6.9 10/02/2017 today, indicating adequate DM control 1800 calorie, consistent carb diet recommended 30 min daily exercise, combining both aerobic and resistance exercise is strongly recommended and needed as part of diabetes management plan. The need to monitor blood glucose before meals and bedtime was discussed. Take prandial insulin before meals based on carb intake and blood glucose readings. Prevention and treatment of hyypoglcyemia discussed. Pump settings adjusted: Basals lowered: 12a 2.7, 530a 3.2 6p 3.5 Assessment & Plan (07/24/2017 2:40 PM AMBULATORY CARE NURSE): A1c 7.3. Long discussion again encouraging to use pump appropriately. Needs to be bolusing for food and Bg. We need to be able to assess BG patterns to make accurate adjustments to pump settings. Needs to check BG with any sx of potential hypoglycemia. Carb counting and label reading reviewed. Assessment & Plan (02/27/2017 10:57 AM CDT): A1c improved 2% at 7.9 but still suboptimal. Needs to focus on being more consistently engaged in checking sugars and bolusing. Will adjust basal settings to avoid overnight lows. Assessment & Plan (12/05/2016 3:49 PM CDT): Hba1c was 9.9 today, indicating adequate DM control 1800 calorie, consistent carb diet recommended 30 min daily aerobic and resistance exercise recommended Foot care discused. Prevention and treatment of hyypoglcyemia discussed. Needs to Monitor BG before meals and bolus with each meal Samples of Apidra provided ( pt thinks it works better for her ) Hypertension associated with diabetes 04/27/2013 Overview (08/22/2016): HYPERTENSION NOS Assessment & Plan (12/26/2023 9:18 AM CDT): Chronic problem, well controlled on Lisinopril 5mg. No changes at this time. Assessment & Plan (07/15/2023 11:04 AM AMBULATORY CARE NURSE): Chronic problem, well controlled on Lisinopril 5mg. No changes at this time. Assessment & Plan (03/25/2023 11:07 AM AMBULATORY CARE NURSE): Chronic problem, well controlled on Lisinopril 5mg. No changes at this time. Will update labs. Verified that she uses [facility]. Aware to check results/results letter in [facility]. Will contact by phone if needed. Assessment & Plan (11/21/2022 4:27 PM CDT): Chronic, well controlled Continue Lisinopril Assessment & Plan (07/23/2022 10:09 AM AMBULATORY CARE NURSE): Chronic problem, well controlled on Lisinopril 5mg. No changes at this time. Assessment & Plan (04/04/2022 3:10 PM AMBULATORY CARE NURSE): Controlled on current medications, no changes. Assessment & Plan (12/06/2021 2:42 PM CDT): Controlled on current medications, no changes. Assessment & Plan (07/26/2021 11:47 AM AMBULATORY CARE NURSE): Chronic, well controlled Continue current meds Assessment & Plan (12/05/2020 3:19 PM CDT): Goal blood pressure is less than 140/85 Low salt diet was discussed andd recommended The importance of daily aerobic exercise was also emphasized. Continue current meds, including NETO-I or ARB, e.g. Lisinopril Assessment & Plan (07/25/2020 3:12 PM AMBULATORY CARE NURSE): Goal blood pressure is less than 140/85 Low salt diet was discussed andd recommended The importance of daily aerobic exercise was also emphasized. Continue current meds, including NETO-I or ARB, e.g. Neg microalbumin Assessment & Plan (04/18/2020 4:38 PM AMBULATORY CARE NURSE): Controlled on current medications. Continue plan. Assessment & Plan (01/06/2020 10:30 AM CDT): Controlled on current medications. Continue plan. Assessment & Plan (09/21/2019 12:35 PM CDT): Goal blood pressure is less than 140/85 Low salt diet recommended Daily aerobic exercise Continue current meds, including NETO-I or ARB with Lisinopril Assessment & Plan (02/16/2019 12:32 PM CDT): Goal blood pressure is less than 140/85 Low salt diet recommended Daily aerobic exercise Continue current meds, including NETO-I or ARB Assessment & Plan (10/06/2018 3:04 PM CDT): Goal blood pressure is less than 140/85 Low salt diet recommended Daily aerobic exercise Continue current meds, including NETO-I or ARB Assessment & Plan (06/23/2018 4:01 PM AMBULATORY CARE NURSE): Goal blood pressure is less than 140/85 Low salt diet recommended Daily aerobic exercise Continue current meds, including NETO-I or ARB Assessment & Plan (03/17/2018 3:46 PM CDT): Goal blood pressure is less than 140/85 Low salt diet recommended Daily aerobic exercise Continue current meds, including NETO-I or ARB Assessment & Plan (10/02/2017 2:25 PM CDT): Goal blood pressure is less than 140/85 Low salt diet recommended Daily aerobic exercise Continue current meds, including NETO-I or ARB Assessment & Plan (07/24/2017 2:36 PM AMBULATORY CARE NURSE): Controlled on current medications. Assessment & Plan (02/27/2017 9:56 AM CDT): Controlled on current medications. Continue lisinopril Assessment & Plan (12/05/2016 3:17 PM CDT): Goal blood pressure is less than 140/85 Low salt diet recommended Daily aerobic exercise Continue current meds, including NETO-I or ARB Resolved Problems Problem Noted Date Diagnosed Date Resolved Date Acute appendicitis 08/02/2020 3 Class 1 obesity due to exces s calories with body mass index (BMI) of 31.0 to 31.9 in adult 02/27/2017 07/23/2022 Assessment & Plan (03/17/2018 3:47 PM CDT): Restart Phentermine Assessment & Plan (07/24/2017 2:35 PM AMBULATORY CARE NURSE): Importance of following diet and exercising discussed. Assessment & Plan (02/27/2017 9:57 AM CDT): Diet and exercise discussed Non morbid obesity due to excess calories 12/05/2016 03/24/2023 Assessment & Plan (07/25/2020 3:20 PM AMBULATORY CARE NURSE): Diet and exercise Continue Phentermine Assessment & Plan (02/16/2019 12:32 PM CDT): Diet and exercise discussed Restart Phentermine Assessment & Plan (12/05/2016 3:53 PM CDT): Diet and exercise Will restart Phentermine Pure hypercholesterolemia 12/15/2012 Overview (08/22/2016): PURE HYPERCHOLESTEROLEM Assessment & Plan (07/24/2017 2:36 PM AMBULATORY CARE NURSE): Check lipid panel Assessment & Plan (02/27/2017 9:56 AM CDT): Continue statin Assessment & Plan (12/05/2016 3:16 PM CDT): Goal of treatment , LDL cholesterol less than 100 ( less than 70 in patients with history of heart attacks and / or strokes ) NonHDL cholesterol goal less than 130 / 100 Lipids at goal. Continue statin therapy Low cholesterol diet, exercise advised. Social History Tobacco Use Types Packs/Day Years Used Date Smoking Tobacco: Never Smokeless Tobacco: Never Alcohol Use Standard Drinks/Week Comments Yes 0 (1 standard drink = 0.6 oz pur e alcohol) few times yearly AUDIT-C Answer Date Recorded Q1: How often do you have a drink containing alc ohol? Never 08/23/2020 Average Number of Drinks Not on file 021 Q3: How often do you have si x or more drinks on one occasion? Never 08/23/2020 PHQ-2 Answer Date Recorded PHQ-2 Total Score (If total score is 3 or more points, staff should administer the PHQ-9) 0 07/26/2021 Comments No Sex and Gender Information Value Date Recorded Sex Assigned at Not on file Legal Sex Female 6:46 PM AMBULATORY CARE NURSE Gender Identity Not on file Sexual Orientation Not on file Last Filed Vital Signs Vital Sign Reading Time Taken Comments Blood Pressure 110/68 12/26/2023 8:52 AM CDT Pulse 103 12/26/2023 8:52 AM CDT Temperature 36.7 ??C (98.1 ??F) 08/23/2020 10:58 AM C DT Respiratory Rate 16 12/26/2023 8:52 AM CDT Oxygen Saturation 95% 08/04/2020 8:13 AM CDT Inhaled Oxygen Concentration - - Weight 80.7 kg (178 lb) 12/26/2023 8:52 AM CDT Height 162.6 cm (5' 4.02 ) 12/26/2023 8:52 AM CD T Body Mass Index 30.54 12/26/2023 8:52 AM CDT Plan of Treatment Not on file Procedures Procedure Name Priority Date/Time Associated Diagnosis Comments POCT HEMOGLOBIN A1C Routine 12/26/2023 8 :55 AM CDT Type 2 diabetes mellitus with hyperglycemia, with long-term current use of insulin (HCC) EGFR Routine 03/25/2023 11:30 AM AMBULATORY CARE NURSE Type 2 diabetes mellitus with hyperglycemia, with long-term current use of insulin (CMS/HCC) (HCC) Hypertension associated with diabetes (HCC) LIPID PANEL Routine 03/25/2023 11:30 AM AMBULATORY CARE NURSE Type 2 diabetes mellitus with hyperglycemia, with long-term current use of insulin (CMS/HCC) (HCC) Hyperlipidemia associated with type 2 diabetes mellitus (HCC) ALBUMIN CREATININE RATIO, URINE Routine 03/25/2023 11:30 AM AMBULATORY CARE NURSE Type 2 diabetes mellitus with hyperglycemia, with long-term current use of insulin (CMS/HCC) (HCC) DIABETIC EYE EXAM Routine 06/03/2022 from Last 3 Months or Most Recently Relevant to Health Maintenance Results * (ABNORMAL) POCT hemoglobin A1c (12/26/2023 8:55 AM CDT) Hemoglobin A1C, POC 7.9 % Blood 12/26/2023 8:55 AM CDT us Aure Schwartz NP POINT OF CARE TEST ORDERA BLES Final Result * eGFR (03/25/2023 11:30 AM AMBULATORY CARE NURSE) eGFR 73 mL/min/1. 73 m2 PRAVIN RODGERS Comment: Interpretive Data Reference Interval Normal ?>/= 90 mL/min/1.73m2 Mildly decreased* ? 60 - 89 mL/min/1.73m2 Mildly to moderately decreased ?45 - 59 mL/min/1.73m2 Moderately to severely decreased ??30 - 44 mL/min/1.73m2 Severely decreased ?15 - 29 mL/min/1.73m2 Kidney Failure ?< 15 ??mL/min/1.73m2 *Relative to young adult level Estimated glomerular filtration rate is determined by the 2020 CKD-EPI equation recommended by the National Kidney Foundation (A Unifying Approach to GFR Estimation: Recommendations of the NKF-ASK Task Force on Reassessing the Inclusion of Race in Diagnosing Kidney Disease, JASN 2020). The CKD-EPI equation should not be used for patients with unstable renal function and has not been validated in children and those over 70. Current interpretive data was last reviewed 2021. Blood 03/25/2023 11:3 0 AM AMBULATORY CARE NURSE 03/26/2023 9:35 AM AMBULATORY CARE NURSE us Aure Schwartz NP LAB BLOOD ORDERABLES Kanchan l Result Performing Organization Address [facility] de Phone Number JANAKALMITA [address] [employer] [place], [place] [id number] * Albumin Creatinine Ratio, Urine (03/25/2023 11:30 AM AMBULATORY CARE NURSE) Albumin Ur <12.0 mg/L PRAVIN RODGERS Comment: Interpretive Data No reference range established. Current interpretive data was last revised 2018. Creatinine Ur 76.0 mg/dL PRAVIN Comment: Interpretive Data No reference range established. Current interpretive data was last revised 2018. Albumin Creatinine Ratio, Ur <16 1 - 29 mg/g PRAVIN Urine 03/25/2023 11:3 0 AM AMBULATORY CARE NURSE 03/26/2023 9:20 AM AMBULATORY CARE NURSE us Aure Schwartz NP LAB URINE ORDERABLES Kanchan l Result Performing Organization Address [facility] de Phone Number PRAVIN [address] [place] [address] * (ABNORMAL) Lipid panel (03/25/2023 11:30 AM AMBULATORY CARE NURSE) [facility] Cholesterol 302(H) 30 - 199 mg/dL PRAVIN RODGERS Comment: Interpretive Data Ages < or = 19 years ??Acceptable: ? <170 mg/dL ??Borderline high: ??170-199 mg/dL ??High: ? >or= 200 mg/dL Ages > or = 20 years ??Desirable: ?<200 mg/dL ??Borderline high: ??200-239 mg/dL ??High: ? >or= 240 mg/dL Literature References: 1. Expert Panel on Integrated Guidelines for Cardiovascular Health and Risk Reduction in Children and Adolescents. Pediatrics 2011;128:S213 2. NCEP Expert Panel. Circulation 2004;110:227 Current Interpretive Data was last revised on 2018. Triglycerides 141 <=149 mg/dL PRAVIN RODGERS Comment: Interpretive Data Ages < or = 9 years ??Acceptable: ? <75 mg/dL ??Borderline high: ??75-99 mg/dL ??High: ? >or= 100 mg/dL Ages 10 to 20 years ??Acceptable: ? <90 mg/dL ??Borderline high: ??90-129 mg/dL ??High: ? >or= 130 mg/dL Ages > or = 20 years ??Desirable: ?<150 mg/dL ??Borderline high: ??150-199 mg/dL ??High: ? 200-499 mg/dL ?Very high: ?? >or= 499 mg/dL Literature References: 1. Expert Panel on Integrated Guidelines for Cardiovascular Health and Risk Reduction in Children and Adolescents. Pediatrics 2011;128:S213 2. NCEP Expert Panel. Circulation 2004;110:227 Current Interpretive Data was last revised on 2018. HDL 68 >=40 mg/dL PRAVIN RODGERS Comment: Interpretive Data Ages < or = 19 years ??Acceptable: ? >45 mg/dL ??Borderline low: ?? 40-45 mg/dL ??Low: ? <40 mg/dL Ages > or = 20 years ??Desirable: ?>or= 60 mg/dL ??Low: ? <40 mg/dL Literature References: 1. Expert Panel on Integrated Guidelines for Cardiovascular Health and Risk Reduction in Children and Adolescents. Pediatrics 2011;128:S213 2. NCEP Expert Panel. Circulation 2004;110:227 Current Interpretive Data was last revised on 2018. LDL, calculated 206(H) <=129 mg/dL PRAVIN RODGERS Comment: Interpretive Data Ages < or = 19 years ??Acceptable: ? <110 mg/dL ??Borderline high: ??110-129 mg/dL ??High: ?>or= 130 mg/dL Ages > or = 20 years ??Optimal: ? <100 mg/dL ??Near optimal: ?100-129 mg/dL ??Borderline high: ?? 130-159 mg/dL ??High: ?>160 mg/dL Literature References: 1. Expert Panel on Integrated Guidelines for Cardiovascular Health and Risk Reduction in Children and Adolescents. Pediatrics 2011;128:S213 2. NCEP Expert Panel. Circulation 2004;110:227 Current Interpretive Data was last revised on 2018. Non-HDL Cholesterol 234 mg/dL PRAVIN RODGERS Comment: Interpretive Data Ages < or = 19 years ??Acceptable: ?<120 mg/dL ??Borderline high: ??120-144 mg/dL ??High: ?>145 mg/dL Ages > or = 20 years ??When triglycerides are >200 mg/dL, Non-HDL cholesterol is a secondary target of ? therapy with treatment goals that are 30 mg/dL greater than the LDL cholesterol target. ? Literature References: 1. Expert Panel on Integrated Guidelines for Cardiovascular Health and Risk Reduction in Children and Adolescents. Pediatrics 2011;128:S213 2. NCEP Expert Panel. Circulation 2004;110:227 Current Interpretive Data was last revised on 2018. Chol/HDL ratio 4 PRAVIN RODGERS Blood 03/25/2023 11:3 0 AM AMBULATORY CARE NURSE 03/26/2023 9:20 AM AMBULATORY CARE NURSE Aure Schwartz NP LAB BLOOD ORDERABLES Kanchan bev Result PRAVIN RODGERS [address] [place] [address] * (ABNORMAL) Diabetic Eye Exam (06/03/2022) Historical Provider HEALTH MAINTENANCE Edited Result - Final from Last 3 Months or Most Recently Relevant to Health Maintenance Insurance [facility] Smartsheet PPO [facility] Advance Directives For more information, please contact: [phone] * Full Code (Latest Code Status on File) Date Activated Date Inactivated Comments 08/03/2020 2:20 AM 08/04/2020 4:05 PM Care Teams [employer] Coordinator Relationship Specialty Start Date End Date Stuart Espinosa DO PCP - General 08/16/16 [place] [id number] [address] Consulting Physician Endocrinology Diabetes & Metabolism 06/18/18
--- OUTSIDE RECORDS SUMMARY | 2024-06-18 08:26 | XMS_ITS | Patient Health Summary ---
Author Organization [facility] Address [address] [place] [address] Care Team Providers Care Director Of State Name Role Phone Chris Jennings MD Primary Care Provider [phone] Note from [facility],non-owned Affiliates and Associated Physician Practices is amultiple site organization consisting of ambulatory clinics and hospital sitesin [place], [place], [place] and [place]. This disclosure is being madepursuant to the Care Everywhere program and may not contain all information available regarding this patient. Last updated 18.[facility] Social History Tobacco Use Types Packs/Day Years Used Date Smoking Tobacco: Never Assessed Sex and Gender Information Value Date Recorded Sex Assigned at Not on file Gender Identity Not on file Sexual Orientation Not on file Procedures * DERMATOPATHOLOGY(Performed 12/07/2020) * DERMATOPATHOLOGY(Performed 10/01/2016) * DERMATOPATHOLOGY(Performed 03/15/2014) * DERMATOPATHOLOGY(Performed 01/04/2013) Results * DERMATOPATHOLOGY (12/07/2020 12:00 AM CDT) Only the most recent of4 resultswithin the time period is included. Case Report Dermatopathology Report ? Case: [id number] ? Authorizing Provider: ??Benedict Oakley Jr., MD ??Collected: ? 12/07/2020 12:00 AM ? Ordering Location: ? [facility] ?Received: ?12/08/2020 01:30 PM ? Pathologist: ? Cecelia Decker MD ? Specimen: ?Skin, right distal dorsal forearm ? 3:35 PM T DERMATOPATHOLOGY LABORATORY Final Diagnosis Specimen A. SKIN, right distal dorsal forearm: BASAL CELL CARCINOMA, NODULAR TYPE (C44.612) 3:35 PM [facility] DERMATOPATHOLOGY LABORATORY Clinical History Inflamed seborrheic keratosis vs squamous cell carcinoma vs basal cell carcinoma. . 3:35 PM CD DERMATOPATHOLOGY LABORATORY Gross Description Specimen A: Received is one formalin filled container labeled with the patient's name and designated right distal dorsal forearm. The specimen consists of a shave biopsy measuring [id number]. Jar 0. 1 3:35 PM CDT DERMATOPATHOLOGY LABORATORY Microscopic Description Specimen A. SKIN, right distal dorsal forearm: Within the dermis there are aggregates of basaloid cells with a high nuclear to cytoplasmic ratio and peripheral palisading. 1 3:35 PM T DERMATOPATHOLOGY LABORATORY Disclaimer An external and internal positive and negative controls are appropriate for the histochemical, immunohistochemical and immunofluorescence stain(s) in this case (if any), except where stated explicitly. The performance characteristics of the stain(s) cited in this report were developed and its performance characteristic determined by the Dermatopathology Laboratory at [facility], directed by Dr. Monique Felipe. These tests need not be, and therefore are not, approved by the [place] Food and Drug Administration. The tests are used for clinical purposes. Billing Codes Specimen Charges Stain Charges 08473 1 1 3:35 PM CDT DERMATOPATHOLOGY LABORATORY Embedded Images 1 3:35 PM CDT DERMATOPATHOLOGY LABORATORY Pathology/Cytolog y TISSUE SPECIMEN FROM SKIN / Unknown 12/07/2020 12/08/2020 1:30 PM CDT Benedict Oakley Jr., MD LAB - PATHOLOGY /CYTOLOGY ORDERABLES DERMATOPATHOLOGY LABORATORY [facility] - Department of Dermatology [facility] Specialized Medicine [address] [place] [address], [address] [phone] Care Teams Director Of State Relationship Specialty Start Date End Date Chris Jennings MD PCP - General 04/12/08
--- OUTSIDE RECORDS SUMMARY | 2024-06-18 08:26 | XMS_ITS | Clinical Summary ---
Author Organization [facility] [address] [place] [address] [place] [id number] Care Team Providers Care Display Screen Fabricator Name Role Phone Stuart Espinosa DO Primary Care Provider [phone] Adeel Benitez MD Unavailable Allergies Active Allergy Reactions Criticality Noted Date Comments Semaglutide Flatulence Medium 03/25/2023 Trenggx-Ywd-Nlf Reductase Inhibitors Muscle pain High 04/17/2021 Medications multivitamin-C g-zuox-albghzj s tablet Take by mouth Active omega 9-guz-cxd-fish oil 100-150-750 mg capsule Take by mouth 2 (two) times a day Active insulin degludec (TRESIBA) 200 unit/mL (3 mL) pen for injection Inject 0.35 mL (70 Units total) under the skin nightly Use in case of insulin pump failure 3 mL 07/27/19 22 Active alirocumab (Praluent Pen) 150 mg/mL pen injector Inject 150 mg under the skin every 14 (fourteen) days 12 mL 1 01/18/20 22 Active flash glucose scanning reader miscIndication s:Type 2 diabetes mellitus with hyperglycemia, with long-term current use of insulin (HCC) Freestyle Dayanara 3 reader for continuous glucose monitoring. 1 each 08/07/19 23 Active insulin lispro (HumaLOG) 100 unit/mL pen for injectionIndic ations:Type 2 diabetes mellitus with hyperglycemia, with long-term current use of insulin (HCC) INJECT 6 UNITS UNDER THE SKIN 3 [...] with long-term current use of insulin (HCC) INJECT UP TO 100 UNITS UNDER THE [...] hyperglycemia, with long-term current use of insulin ([facility]) Take 1 tablet (10 mg total) by mouth daily 90 tablet 3 12/26/19 24 Active phentermine 37.5 mg capsuleIndicat ions:Type 2 diabetes mellitus with hyperglycemia, with long-term current use of insulin ([facility]) Take 1 capsule (37.5 mg total) by mouth every morning 30 capsule 04/12/20 24 Active lisinopriL (PRINIVIL,ZEST RIL) 5 mg tabletIndicati ons:Type 2 diabetes mellitus with hyperglycemia, with long-term current use of insulin ([facility]) TAKE 1 TABLET DAILY 90 tablet 1 05/26/19 25 Active Dexcom G7 Sensor deviceIndicati ons:Type 2 diabetes mellitus with hyperglycemia, with long-term current use of insulin ([facility]) Change sensor every 10 days 9 each 3 06/10/19 25 Active blood-glucose sensor (FreeStyle Dayanara 3 Sensor) deviceIndicati ons:Type 2 diabetes mellitus with hyperglycemia, with long-term current use of insulin ([facility]) Change sensor every 14 days. 6 each [...] 07/23/2022 Assessment & Plan (07/23/2022 9:42 AM ASSISTANT SURVEYOR): Discussed healthy diet and importance of regular physical activity (20- 30min/day, 150min/wk). Other chest pain 01/25/2019 Abnormal stress test 12/21/2018 Hyperlipidemia associated with type 2 diabetes m ellitus 10/02/2017 Assessment & Plan (12/26/2023 9:43 AM CDT): Chronic problem, not currently taking anything for statin. Last lipid panel: 03/25/23 ZWA=630, YP=326. Declines statin therapy. Assessment & Plan (07/15/2023 11:06 AM ASSISTANT SURVEYOR): Chronic problem, not currently taking anything for statin. Last lipid panel: 03/25/23 FEF=259, RQ=945. Declines statin therapy. Discussed lifestyle changes to [...] mg/dL Assessment & Plan (03/25/2023 11:07 AM ASSISTANT SURVEYOR): Chronic problem, not currently taking anything for statin. Last lipid panel: 02/28/22 LDL=70, TG=88. Declines statin therapy. No changes at this time. Will update labs today. Verified that she uses [facility]. Aware to check results/results letter in [employer]. Will contact by phone if needed. Assessment & Plan (07/23/2022 10:09 AM ASSISTANT SURVEYOR): Chronic problem, well controlled on current Praulent 150mg every 14 days, Repatha 140mg every 14 days. Last lipid panel: 02/28/22 LDL=70, TG=88. Declines statin therapy. No changes at this time. Assessment & Plan (04/04/2022 2:55 PM ASSISTANT SURVEYOR): Chronic problem, statin intolerant but doing well with PCSK9i. Assessment & Plan (12/06/2021 2:48 PM CDT): Chronic problem. On Praluent now. Update lipid panel. Assessment & Plan (07/26/2021 11:48 AM ASSISTANT SURVEYOR): Low cholesterol low fat diet Can not tolerate statins Will try to get report of cardiac cath done a few years ago, to see if there is evidence of CAD, to we can appeal the denial of Ada by her insurance company Assessment & Plan (04/17/2021 2:55 PM ASSISTANT SURVEYOR): Severe Can not tolerate statins Will request [...] Simvastatin Assessment & Plan (07/25/2020 3:12 PM ASSISTANT SURVEYOR): Goal of treatment , LDL cholesterol less [...] 02/2020 Assessment & Plan (04/18/2020 4:38 PM ASSISTANT SURVEYOR): LDL above goal. Continue statin. Focus on [...] therapy Assessment & Plan (06/23/2018 4:01 PM ASSISTANT SURVEYOR): Goal of treatment , LDL cholesterol less [...] 120 Assessment & Plan (07/15/2023 11:04 AM ASSISTANT SURVEYOR): Again asked her to try the Guardian sensor in place of the FSL to work the MM 780G to its full capacity. No pump setting changes. Assessment & Plan (03/25/2023 11:06 AM ASSISTANT SURVEYOR): Asked her to try the Guardian sensor in place of the FSL to work the MM 780G to its full capacity. Assessment & Plan (07/23/2022 10:07 AM ASSISTANT SURVEYOR): No pump setting changes today. Assessment & Plan (12/06/2021 2:49 PM CDT): No pump setting changes. Assessment & Plan (07/26/2021 11:49 AM ASSISTANT SURVEYOR): Pt has insulin syringes and sample of Tresiba was given, she knows how to use it in case of insulin pump failure Assessment & Plan (04/18/2020 4:39 PM ASSISTANT SURVEYOR): Add 1 pm basal at 3.7 Change [...] ) Assessment & Plan (07/24/2017 2:35 PM ASSISTANT SURVEYOR): Alternate sites reviewed. OK to use abd [...] sent to get copy of report from [facility]. Sedentary lifestyle. Strive for regular exercise (30min [...] infection. Assessment & Plan (07/15/2023 11:04 AM ASSISTANT SURVEYOR): Chronic problem, now at goal. A1c improved from 9.2% 03/2023 to now 7.5%. Discussed correctional boluses. Reviewed FSL download w/Anna during appt. Will resume ozempic at 0.25mg weekly as this dose did not cause any problems. Current medications: Farxiga 10 mg Ozempic 0.25mg weekly Humalog via Medtronic 780G BR 12a 2.5, 530a 3, 1p 3.2, 6p 3.6 CR 6 CF 20 Target 140 UTD on labs. UTD on DM eye exam (05/29/23))--letter sent to get copy of report from [facility]. Sedentary lifestyle. Strive for regular exercise (30min [...] infection. Assessment & Plan (03/25/2023 11:14 AM ASSISTANT SURVEYOR): Chronic problem, not at goal. Hyperglycemia. A1c [...] mychart. Aware to check results/results letter in [facility]. Will contact by phone if needed. UTD [...] process Assessment & Plan (07/23/2022 10:07 AM ASSISTANT SURVEYOR): Chronic problem, not at goal. Hyperglycemia. Needs to start giving correctional boluses if not eating until 5p. Needs to check & give correctional bolus at HS. 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 Sample given, will start at 0.25mg weekly x 2 weeks the increase to 0.5mg weekly. Current medications: Farxiga 10 mg Omnipod with NL BR: 12am 2.5, 530 am 3.0, 1pm 3.2, 6pm 3.6 CR 6 CF 20 T 100 AIT 4H Assessment & Plan (04/04/2022 3:11 PM ASSISTANT SURVEYOR): Chronic problem, not at goal. She continues [...] CMP. Assessment & Plan (07/26/2021 11:49 AM ASSISTANT SURVEYOR): Adequately controlled Continue pump at current settings rx for Ozempic 0.5 mg weekly was also sent. Assessment & Plan (04/17/2021 2:51 PM ASSISTANT SURVEYOR): Hba1c was Lab Results Component Value Date [...] Ozempic Assessment & Plan (07/25/2020 3:13 PM ASSISTANT SURVEYOR): Hba1c was Lab Results Component Value Date [...] Farxiga Assessment & Plan (04/18/2020 4:40 PM ASSISTANT SURVEYOR): A1c worsening at 9.9. Intensify CF and [...] provided with contact information for insulin pump retail field representative and how to reach our office [...] discussed. Assessment & Plan (06/23/2018 4:00 PM ASSISTANT SURVEYOR): Hba1c was Lab Results Component Value Date [...] 3.5 Assessment & Plan (07/24/2017 2:40 PM ASSISTANT SURVEYOR): A1c 7.3. Long discussion again encouraging to [...] time. Assessment & Plan (07/15/2023 11:04 AM ASSISTANT SURVEYOR): Chronic problem, well controlled on Lisinopril 5mg. No changes at this time. Assessment & Plan (03/25/2023 11:07 AM ASSISTANT SURVEYOR): Chronic problem, well controlled on Lisinopril 5mg. No changes at this time. Will update labs. Verified that she uses [employer]. Aware to check results/results letter in [facility]. Will contact by phone if needed. Assessment & Plan (11/21/2022 4:27 PM CDT): Chronic, well controlled Continue Lisinopril Assessment & Plan (07/23/2022 10:09 AM ASSISTANT SURVEYOR): Chronic problem, well controlled on Lisinopril 5mg. No changes at this time. Assessment & Plan (04/04/2022 3:10 PM ASSISTANT SURVEYOR): Controlled on current medications, no changes. Assessment & Plan (12/06/2021 2:42 PM CDT): Controlled on current medications, no changes. Assessment & Plan (07/26/2021 11:47 AM ASSISTANT SURVEYOR): Chronic, well controlled Continue current meds Assessment & Plan (12/05/2020 3:19 PM CDT): Goal blood pressure is less than 140/85 Low salt diet was discussed andd recommended The importance of daily aerobic exercise was also emphasized. Continue current meds, including NETO-I or ARB, e.g. Lisinopril Assessment & Plan (07/25/2020 3:12 PM ASSISTANT SURVEYOR): Goal blood pressure is less than 140/85 Low salt diet was discussed andd recommended The importance of daily aerobic exercise was also emphasized. Continue current meds, including NETO-I or ARB, e.g. Neg microalbumin Assessment & Plan (04/18/2020 4:38 PM ASSISTANT SURVEYOR): Controlled on current medications. Continue plan. Assessment [...] ARB Assessment & Plan (06/23/2018 4:01 PM ASSISTANT SURVEYOR): Goal blood pressure is less than 140/85 [...] ARB Assessment & Plan (07/24/2017 2:36 PM ASSISTANT SURVEYOR): Controlled on current medications. Assessment & Plan [...] Phentermine Assessment & Plan (07/24/2017 2:35 PM ASSISTANT SURVEYOR): Importance of following diet and exercising discussed. Assessment & Plan (02/27/2017 9:57 AM CDT): Diet and exercise discussed Non morbid obesity due to excess calories 12/05/2016 03/24/2023 Assessment & Plan (07/25/2020 3:20 PM ASSISTANT SURVEYOR): Diet and exercise Continue Phentermine Assessment & Plan (02/16/2019 12:32 PM CDT): Diet and exercise discussed Restart Phentermine Assessment & Plan (12/05/2016 3:53 PM CDT): Diet and exercise Will restart Phentermine Pure hypercholesterolemia 12/15/2012 Overview (08/22/2016): PURE HYPERCHOLESTEROLEM Assessment & Plan (07/24/2017 2:36 PM ASSISTANT SURVEYOR): Check lipid panel Assessment & Plan (02/27/2017 9:56 AM CDT): Continue statin Assessment & Plan (12/05/2016 3:16 PM CDT): Goal of treatment , LDL cholesterol less than 100 ( less than 70 in patients with history of heart attacks and / or strokes ) NonHDL cholesterol goal less than 130 / 100 Lipids at goal. Continue statin therapy Low cholesterol diet, exercise advised. Encounters Date Type Department Care Team Description 06/09/2024 Telephone [facility] Diabetes and Endocrinology [address] [place] [phone] Aure Schwartz NP Prior Auth (Freestyle Dayanara 3 Sensor) 04/12/2024 Telephone [facility] Diabetes and Endocrinology [address] [place] [phone] Aure Schwartz NP Prior Auth (Phentermine) from Last 3 Months Surgical History Surgery Date Site/Laterality Comments COMBINED ABDOMINOPLASTY AND LIPOSUCTION Medical History Medical History Date Comments Hypertension Hypertension Hyperlipidemia Hyperlipidemia Diabetes mellitus (HCC) Diabetes Adiposity obesity Diabetes mellitus (HCC) diabetes mellitus; Comments: uncontrolled Diabetes mellitus (HCC) diabetes mellitus Hx Other Medical Claustrophobic; Comments: [facility] 12/14/2013 - Hx Other Medical not claustropho bic; Comments: SWEET 03/29/2014 - Family History Medical History Relation Name Comments Heart disease Father Diabetes type II Other Family hist ory of Diabetes -Type II; Relation Name Status Comments Father Had CABG in his early 60s Other Social History Tobacco Use Types Packs/Day Years [...] on file Legal Sex Female 6:46 PM ASSISTANT SURVEYOR Gender Identity Not on file Sexual Orientation Not on file Obstetrics History Last Filed Vital Signs Vital Sign Reading [...] 12/26/2023 8:52 AM CDT Plan of Treatment Health Maintenance Due Date Last Done Comments Breast Cancer Screening-Mammogram 1962 Cervical Cancer Screening 1962 Colon Cancer Screening-Colonoscopy 1962 Hepatitis C Screening 1962 Pneumococcal vaccine <65 (1 of 2 - PCV) 1968 DTaP/Tdap/Td Vaccine (1 - Tdap) 1973 Hepatitis B Screening 1980 Regular Well Visit/Exam 18-64 1980 Zoster Vaccine (1 of 2) 2012 Depression Screening 07/25/2021 07/25/2020, 09/21/2019, 02/16/2019, Additional history exists Dilated Eye Exam 06/03/2023 06/03/2022, 11/2020, 12/25/2018, Additional history exists Influenza Vaccine (#1) 2024 Albumin Creatinine Ratio, Urine 03/25/2024 03/25/2023, 04/04/2022, 04/17/2021, Additional history exists Foot Exam 03/25/2024 03/25/2023, 11/17, 07/25/2020, Additional history exists Lipid Panel 03/25/2024 03/25/2023, 02/18, 04/17/2021, Additional history exists eGFR 03/25/2024 03/25/2023, 02/18, 08/03/2020, Additional history exists Hemoglobin A1C 06/27/2024 12/26/2023, 06/20, 03/25/2023, Additional history exists Procedures Procedure Name Priority Date/Time Associated Diagnosis Comments POCT HEMOGLOBIN A1C Routine 12/26/2023 8 :55 AM CDT Type 2 diabetes mellitus with hyperglycemia, with long-term current use of insulin (HCC) EGFR Routine 03/25/2023 11:30 AM ASSISTANT SURVEYOR Type 2 diabetes mellitus with hyperglycemia, with long-term current use of insulin (CMS/HCC) (HCC) Hypertension associated with diabetes (HCC) LIPID PANEL Routine 03/25/2023 11:30 AM ASSISTANT SURVEYOR Type 2 diabetes mellitus with hyperglycemia, with long-term current use of insulin (CMS/HCC) (HCC) Hyperlipidemia associated with type 2 diabetes mellitus (HCC) ALBUMIN CREATININE RATIO, URINE Routine 03/25/2023 11:30 AM ASSISTANT SURVEYOR Type 2 diabetes mellitus with hyperglycemia, with [...] Final Result * eGFR (03/25/2023 11:30 AM ASSISTANT SURVEYOR) eGFR 73 mL/min/1. 73 m2 [facility] RODGERS [...] reviewed 2021. Blood 03/25/2023 11:3 0 AM ASSISTANT SURVEYOR 03/26/2023 9:35 AM ASSISTANT SURVEYOR us Aure Schwartz NP LAB BLOOD ORDERABLES Kanchan l Result Performing Organization Address [facility] Phone Number JANAKALMITA [id number] [place] [address] [address] * Albumin Creatinine Ratio, Urine (03/25/2023 11:30 AM ASSISTANT SURVEYOR) Pathologist [facility] Albumin Ur <12.0 mg/L [facility] Comment: Interpretive Data No reference range established. Current interpretive data was last revised 2018. Creatinine Ur 76.0 mg/dL [facility] Comment: Interpretive Data No reference range established. Current interpretive data was last revised 2018. Albumin Creatinine Ratio, Ur <16 1 - 29 mg/g [facility] Urine 03/25/2023 11:3 0 AM ASSISTANT SURVEYOR 03/26/2023 9:20 AM ASSISTANT SURVEYOR Aure Schwartz NP LAB URINE ORDERABLES Kanchan l Result Performing Organization Address [facility] de Phone Number [facility] [address] [place] [address] * (ABNORMAL) Lipid panel (03/25/2023 11:30 AM ASSISTANT SURVEYOR) Pathologist [facility] Cholesterol 302(H) 30 - 199 mg/dL [...] on 2018. LDL, calculated 206(H) <=129 mg/dL [facility] Comment: Interpretive Data Ages < or = [...] revised on 2018. Non-HDL Cholesterol 234 mg/dL [facility] Comment: Interpretive Data Ages < or = [...] last revised on 2018. Chol/HDL ratio [address] [facility] Blood 03/25/2023 11:3 0 AM ASSISTANT SURVEYOR 03/26/2023 9:20 AM ASSISTANT SURVEYOR Aure Schwartz AUTOMOTIVE PROFESSIONAL LAB BLOOD ORDERABLES Kanchan pablo Result [facility] [address] Department [place] [address] * (ABNORMAL) Diabetic Eye Exam (06/03/2022) Historical Provider HEALTH MAINTENANCE Edited Result - Final from Last 3 Months or Most Recently Relevant to Health Maintenance Insurance FORMERLY [facility] [employer] MOBILE PPO [facility] HMO/PPO Address[address] [address] [facility] HMO Member Subscriber Plan / Payer (Ef fective 2022-Present) Name:Mayra Willoughby Relation to Subscriber:Spouse Name:CHRIS WILLOUGHBY Date of :1960 Address: [address] [place] [address] Payer ID:[id number] (NAIC) Type:AETNA HMO/PPO Address: [facility] [address] [address] Advance Directives For more information, please contact: [phone] * Full Code (Latest Code Status on File) Date Activated Date Inactivated Comments 08/03/2020 2:20 AM 08/04/2020 4:05 PM Care Teams Display Screen Fabricator Relationship Specialty Start Date End Date Stuart Espinosa DO PCP - General 08/16/16 [place] [id number] [address] [address] Consulting Physician Endocrinology Diabetes & Metabolism 06/18/18
--- OUTSIDE RECORDS SUMMARY | 2024-06-18 08:26 | XMS_ITS | Clinical Summary ---
Author Organization [facility] Address [address] [place] [address] Care Team Providers Care Workforce Planning Analyst Name Role Phone Chris Jennings MD Primary Care Provider [phone] Source Comments [facility],non-[facility] Affiliates and Associated Physician Practices is amultiple site organization consisting of ambulatory clinics and hospital sitesin [place], [place], [place] and [place]. This disclosure is being madepursuant to the Care Everywhere program and may not contain all information available regarding this patient. Last updated 18.[facility] Social History Tobacco Use Types Packs/Day Years Used Date Smoking Tobacco: Never Assessed Sex and Gender Information Value Date Recorded Sex Assigned at Not on file Gender Identity Not on file Sexual Orientation Not on file Plan of Treatment Health Maintenance Due Date Last Done Comments COLOGUARD (AGES 45-75) - COL ON CA SCREENING 1962 COLON MONITORING 1962 COLONOSCOPY - COLON CA SCREENING 1962 CT COLONOGRAPHY - COLON CA SCREENING 1962 Colorectal Cancer Screening 1962 FIT - COLON CA SCREENING 1962 FLEX SIG - COLON CA SCREENING 1962 LIPID TESTING 1962 MAMMOGRAM 1962 PAP SMEAR 1962 HIV SCREENING 1977 HEPATITIS C SCREENING 04/03/1980 DTAP/TDAP/TD VACCINES (1 - Tdap) 1981 PNEUMOCOCCAL VACCINE 50+ (1 of 1 - PCV) 2012 ZOSTER VACCINE (1 of 2) 2012 COVID-19 VACCINE (1 - 2024-2 5 season) 2024 INFLUENZA VACCINE (#1) 2024 DEPRESSION SCREENING 05/19/2024 Respiratory Syncytial Virus (RSV) Vaccine Pt: or over 60 yrs (1 - 1-dose 75+ series) 2037 HEPATITIS B VACCINE Aged Out No longe r eligible based on patient's age to complete this topic HIB VACCINE Aged Out No longer eligi ble based on patient's age to complete this topic HPV VACCINE Aged Out No longer eligi ble based on patient's age to complete this topic MENINGOCOCCAL (Group B) VACCINE Aged Out No longer eligible based on patient's age to complete this topic MENINGOCOCCAL VACCINE Aged Out No charlette kane eligible based on patient's age to complete this topic PNEUMOCOCCAL VACCINE Aged Out No long er eligible based on patient's age to complete this topic Care Teams Workforce Planning Analyst Relationship Specialty Start Date End Date Chris Jennings MD PCP - General 04/12/08
--- OUTSIDE RECORDS SUMMARY | 2024-06-18 08:26 | XMS_ITS | Encounter Summary ---
Author Organization [facility] Address [address] [place] [address] Care Team Providers Care Form Maker Plaster Name Role Phone Chris Jennings MD Primary Care Provider [phone] Encounter Details Date Type Department Care Team (Late st Contact Info) Description 12/08/2020 Lab Requisition [facility] [address] [place] [address] Benedict Oakley Jr., MD [address] [place] [address] Social History Tobacco Use Types Packs/Day Years Used Date Smoking Tobacco: Never Assessed Sex and Gender Information Value Date Recorded Sex Assigned at Not on file Gender Identity Not on file Sexual Orientation Not on file documented as of this encounter Plan of Treatment Not on file documented as of this encounter Procedures Procedure Name Priority Date/Time Associated Diagnosis Comments DERMATOPATHOLOGY Routine 12/07/2020 12:0 0 AM CDT documented in this encounter Results * DERMATOPATHOLOGY (12/07/2020 12:00 AM CDT) Case Report Dermatopathology Report ? Case: [id number] ? Authorizing Provider: ??Benedict Oakley Jr., MD ??Collected: ? 12/07/2020 12:00 AM ? Ordering Location: ? [facility] ?Received: ?12/08/2020 01:30 PM ? Pathologist: ? Cecelia Decker MD ? Specimen: ?Skin, right distal dorsal forearm ? 1 3:35 PM CDT DERMATOPATHOLOGY LABORATORY Final Diagnosis Specimen A. SKIN, right distal dorsal forearm: BASAL CELL CARCINOMA, NODULAR TYPE (C44.612) 1 3:35 PM CDT DERMATOPATHOLOGY LABORATORY Clinical History Inflamed seborrheic keratosis vs squamous cell carcinoma vs basal cell carcinoma. . 1 3:35 PM CDT DERMATOPATHOLOGY LABORATORY Gross Description Specimen A: Received is one formalin filled container labeled with the patient's name and designated right distal dorsal forearm. The specimen consists of a shave biopsy measuring [id number]. Jar 0. 1 3:35 PM CDT DERMATOPATHOLOGY LABORATORY Microscopic Description Specimen A. SKIN, right distal dorsal forearm: Within the dermis there are aggregates of basaloid cells with a high nuclear to cytoplasmic ratio and peripheral palisading. 1 3:35 PM CDT DERMATOPATHOLOGY LABORATORY Disclaimer An external and internal positive and negative controls are appropriate for the histochemical, immunohistochemical and immunofluorescence stain(s) in this case (if any), except where stated explicitly. The performance characteristics of the stain(s) cited in this report were developed and its performance characteristic determined by the Dermatopathology Laboratory at [facility], directed by Dr. Monique Felipe. These tests need not be, and therefore are not, approved by the [place] Food and Drug Administration. The tests are used for clinical purposes. Billing Codes Specimen Charges Stain Charges 30420 1 1 3:35 PM CDT DERMATOPATHOLOGY LABORATORY Embedded Images 1 3:35 PM CDT DERMATOPATHOLOGY LABORATORY Pathology/Cytolog y TISSUE SPECIMEN FROM SKIN / Unknown 12/07/2020 12/08/2020 1:30 PM CDT Benedict Oakley Jr., MD LAB - PATHOLOGY /CYTOLOGY ORDERABLES DERMATOPATHOLOGY LABORATORY [facility] - Department of Dermatology [facility] Medicine [address] [place] [address], [address] [phone] documented in this encounter Visit Diagnoses Not on filedocumented in this encounter Care Teams Form Maker Plaster Relationship Specialty Start Date End Date Chris Jennings MD PCP - General 04/12/08 documented as of this encounter
--- OUTSIDE RECORDS SUMMARY | 2024-06-18 08:26 | XMS_ITS | Referral Summary ---
Author Organization [facility] Address [address] [place] [address] Care Team Providers Care Senior Integration Developer Name Role Phone Chris Jennings MD Primary Care Provider [phone] Source Comments [facility] and Associated [facility]ician Practices is amultiple site organization consisting of ambulatory clinics and hospital sitesin [place], [place], [place] and [place]. This disclosure is being madepursuant to the Care Everywhere program and may not contain all information available regarding this patient. Last updated 18.[facility] Social History Tobacco Use Types Packs/Day Years Used Date Smoking Tobacco: Never Assessed Sex and Gender Information Value Date Recorded Sex Assigned at Not on file Gender Identity Not on file Sexual Orientation Not on file Plan of Treatment Not on file Care Teams Senior Integration Developer Relationship Specialty Start Date End Date Chris Jennings MD PCP - General 04/12/08
[2024-06-18 13:33] LABS: Basophils Absolute Auto 0.1 K/mm3 (0.0-0.1); Basophils Percent Auto 0.7 % (0.2-1.2); Eosinophils Absolute Auto 0.1 K/mm3 (0-0.3); Eosinophils Percent Auto 1.6 % (0-4.4); Hemoglobin 14.6 g/dL (12.0-15.0); Immature Granulocyte Absolute 0.07 K/mm3 (0.00-0.031); Immature Granulocyte Percent A 0.9 % (0-0.5); Lymphocytes Absolute Auto 3.25 K/mm3 (0.9-3.2); Lymphocytes Percent Auto 42.8 % (18.3-44.2); Mean Corpuscular HGB Conc 31.7 g/dl (32-36); Mean Corpuscular Hemoglobin 28.9 pg (26-34); Mean Corpuscular Volume 91.1 fl (80-100); Mean Platelet Volume 9.8 fl (7.4-10.4); Monocytes Absolute Auto 0.6 K/mm3 (0.1-0.6); Monocytes Percent Auto 7.4 % (2.6-8.5); Neutrophils Absolute Auto 3.6 K/mm3 (1.3-6.7); Neutrophils Percent Auto 46.6 % (45.5-73.1); Platelet Count Result 291 k/mm3 (150-375); Red Blood Count 5.05 M/mm3 (4.2-5.4); Red Cell Distribution Width 12.7 % (11.5-14.5); White Blood Count 7.6 K/mm3 (4.5-10.0)
[2024-06-18 13:49] LABS: Alanine Aminotransferase 15 U/L (6-35); Albumin Level 4.4 g/dL (3.5-5.1); Alkaline Phosphatase 85 U/L (38-126); Anion Gap 11 mmol/L (4-12); Aspartate Amino Transferase 33 U/L (14-36); Bilirubin,Total 0.5 mg/dL (0.2-1.3); Blood Urea Nitrogen 11 mg/dL (7-17); Calcium 9.7 mg/dL (8.4-10.2); Carbon Dioxide 28 mmol/L (22-30); Chloride 103 mmol/L (98-107); Cholesterol 272 mg/dL (0-200); Estimated Glomerular Filt Rate 58; Glucose 126 mg/dL (65-110); HDL Direct 64 mg/dL; Potassium 4.5 mmol/L (3.4-5.0); Sodium 142 mmol/L (137-145); Triglycerides 147 mg/dL (<150)
[2024-06-18 13:51] LABS: Vitamin D 25 Hydroxy 50.3 ng/mL
[2024-06-18 14:02] LABS: LDL Cholesterol Direct 181 mg/dL
== END 2024-06-18 08:17 | disposition home or self-care (01) ==
LOC: ANHGOSHLAB 08:17
PROVIDERS: PCP Clinical Nurse Specialist; Visit Provider Clinical Nurse Specialist
DX: Z13.29 Encounter for screening for other suspected endocrine disorder (principal); Z13.220 Encounter for screening for lipoid disorders; I10 Essential (primary) hypertension; E11.9 Type 2 diabetes mellitus without complications; E55.9 Vitamin D deficiency, unspecified
CPT/HCPCS: 36415; 80053; 80061; 82306; 84443; 85025

== ENCOUNTER 2025-04-11 09:52 | Outpatient (CLI) | payer OTHER, SELFPAY ==
--- NOTE | ~2025-04-11 | XR_ITS ---
[id number] Indication: Radiculopathy, cervical region, thumb pain x 1 week Comparison: None Findings: There is grade 1 anterolisthesis of C3 on C4 C4 on C5 with grade 1 retrolisthesis C5 on C6, no acute fracture. Severe loss of disc height at C5-6. Soft tissues unremarkable Impression: No acute abnormality. Reviewed, dictated and finalized at location P. UCT DEMONSTRATOR Impression: No acute abnormality.
== END 2025-04-11 09:53 | disposition home or self-care (01) ==
LOC: GOSHIMG 09:53
PROVIDERS: PCP Internal Medicine; Visit Provider Clinical Nurse Specialist
DX: M54.12 Radiculopathy, cervical region (principal)
CPT/HCPCS: 72040

== ENCOUNTER 2025-05-09 08:56 | Outpatient (CLI) | payer OTHER, SELFPAY ==
--- NOTE | ~2025-05-09 | XR_ITS ---
EXAMINATION: HAND-MARCIA ARTHRITIS 3+VIEWS DATE: 05/09/2025 09:18 INDICATION: Worsening pain at the proximal aspect of the bilateral thumbs TECHNIQUE: Posteroanterior, lateral, and oblique views of the left and of the right hands as well as a ballcatchers view of both hands were obtained. COMPARISON: None. FINDINGS: Bone alignment is normal at both hands and wrists. No fractures. Relatively symmetric with minimal to mild polyarticular osteoarthritis at the bilateral triscaphe, first carpometacarpal and multiple predominantly distal interphalangeal joints. On the ball-catcher's views there are erosions at the radial aspect of the base of the bilateral second proximal phalanges which raises concern for rheumatoid arthritis. No other erosions identified. Soft tissues are unremarkable. IMPRESSION: 1. Erosions at the radial aspect of the base of the bilateral second proximal phalanges which raises concern for rheumatoid arthritis. 2. Relatively symmetric minimal to mild polyarticular osteoarthritis at both hands. Reviewed, dictated and finalized at location A. NESS INTELLIGENCE ANALYST IMPRESSION: 1. Erosions at the radial aspect of the base of the bilateral second proximal p halanges which raises concern for rheumatoid arthritis. 2. Relatively symmetric minimal to mild polyarticular osteoarthritis at both [place] nds.
== END 2025-05-09 08:57 | disposition home or self-care (01) ==
LOC: GOSHIMG 08:57
PROVIDERS: PCP Internal Medicine; Visit Provider Clinical Nurse Specialist
DX: M25.541 Pain in joints of right hand (principal); M25.542 Pain in joints of left hand
CPT/HCPCS: 73130

== ENCOUNTER 2025-05-13 13:24 | Outpatient (CLI) | payer OTHER, SELFPAY ==
--- NOTE | ~2025-05-13 | MR_ITS ---
EXAMINATION: MR cervical spine wo con DATE: 05/13/2025 13:55 INDICATION: Radiculopathy, cervical region. TECHNIQUE: Magnetic resonance imaging (MRI) of the cervical spine was performed without intravenous contrast. COMPARISON: Cervical spine radiographs 04/11/2025 FINDINGS: There is kyphosis of cervical spine. There is 2 mm retrolisthesis of C5 on C6. Vertebral body heights are normal. There is moderately decreased disc height at C5-C6. The spinal cord signal intensity is normal. The following disc levels are specifically discussed: C2-C3: The disc does not extend beyond the endplate margin. There is no uncovertebral joint osteoarthritis. There is moderate right and severe left facet joint osteoarthritis. There is mild left neural foraminal stenosis. There is no central canal stenosis. C3-C4: There is a central protrusion. There is mild left uncovertebral joint osteoarthritis. There is moderate right and severe left facet joint osteoarthritis. There is mild left neural foraminal stenosis. There is mild central canal stenosis. C4-C5: The disc is bulging. There is mild bilateral uncovertebral joint osteoarthritis. There is moderate bilateral facet joint osteoarthritis. There is mild bilateral neural foraminal stenosis. There is mild central canal stenosis. C5-C6: The disc is bulging with superimposed right central extrusion. There is severe bilateral uncovertebral joint osteoarthritis. There is mild bilateral facet joint osteoarthritis. There is mild right and moderate left neural foraminal stenosis. There is mild central canal stenosis. C6-C7: The disc is bulging. There is mild bilateral uncovertebral joint osteoarthritis. There is moderate right and mild left facet joint osteoarthritis. There is mild bilateral neural foraminal stenosis. There is mild central canal stenosis. C7-T1: There is a central protrusion. There is no uncovertebral joint osteoarthritis. There is moderate bilateral facet joint osteoarthritis. There is mild bilateral neural foraminal stenosis. There is mild central canal stenosis. IMPRESSION: 1. Moderate cervical spondylosis. Reviewed, dictated and finalized at location E. ER DRIVER
--- OUTSIDE RECORDS SUMMARY | 2025-05-13 13:28 | XMS_ITS | Clinical Summary ---
Author Organization [facility] Address [address] [place] [address] Care Team Providers Care Appliance Fixer Name Role Phone Chris Jennings MD Primary Care Provider [phone] Source Comments [facility] Aff[facility]ates and Associated Physician Practices is amultiple site organization consisting of ambulatory clinics and hospital sitesin [place], [place], [place] and [place]. This disclosure is being madepursuant to the Care Everywhere program and may not contain all information available regarding this patient. 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 Gender Identity Not on file Sexual Orientation [...] SCREENING 1962 LIPID TESTING 1962 MAMMOGRAM 1962 HIV SCREENING 1977 HEPATITIS C SCREENING 04/03/1980 DTAP/TDAP/TD VACCINES (1 - Tdap) 1981 PNEUMOCOCCAL VACCINE 50+ (1 of 1 - PCV) 2012 ZOSTER VACCINE (1 of 2) 2012 DEPRESSION SCREENING 05/19/2024 COVID-19 VACCINE (1 - 2024-2 6 season) 2025 INFLUENZA VACCINE (#1) 2025 Respiratory Syncytial Virus (RSV) Vaccine Pt: or [...] to complete this topic MENINGOCOCCAL (Group B) VACC INE SHARED DECISION-MAKING Aged Out No longer eligibl e based on patient's age to complete this topic MENINGOCOCCAL GROUPS A/C/Y/W VACCINE Aged Out No longer eligible b ased on patient's age to complete this topic Insurance C[employer] Care Teams Appliance Fixer Relationship Specialty Start Date End Date Chris Jennings MD PCP - General 04/12/08
--- OUTSIDE RECORDS SUMMARY | 2025-05-13 13:28 | XMS_ITS | Clinical Summary ---
Author Organization [facility] [address] [place] [address] [place] [id number] Care Team Providers Care Silo Man Name Role Phone Stuart Espinosa DO Primary Care Provider [phone] Adeel Benitez MD Unavailable Allergies Active Allergy Reactions Criticality Noted Date Comments Semaglutide Flatulence Medium 03/25/2023 Vqirzre-Kxe-Upn Reductase Inhibitors Muscle pain High 04/17/2021 Medications multivitamin-C k-fuyk-vtoqepv s tablet Take by mouth Active omega 0-gxx-uau-fish oil 100-150-750 mg capsule Take by mouth 2 (two) times a day Active insulin degludec (TRESIBA) 200 unit/mL (3 mL) pen for injection Inject 0.35 mL (70 Units total) under the skin nightly Use in case of insulin pump failure 3 mL 2 Active Dexcom G7 Sensor deviceIndicati ons:Type 2 diabetes mellitus with hyperglycemia, with long-term current use of insulin (HCC) Change sensor every 10 days 9 each 3 5 Active phentermine 37.5 mg capsuleIndicat ions:Type 2 diabetes mellitus with hyperglycemia, with long-term current use of insulin (HCC) Take 1 capsule (37.5 mg total) by mouth every morning 90 capsule 1 5 Active Additional Information Patient not taking.Reported on 03/15/2025 fluorouraciL (EFUDEX) 5 % cream 02/27/202 5 Active Farxiga 10 mg tabletIndicati ons:Type 2 diabetes mellitus with hyperglycemia, with long-term current use of insulin ([facility]) TAKE 1 TABLET DAILY 90 tablet 3 5 Active semaglutide (WEGOVY) 0.25 mg/0.5 mL auto-injectorI ndications:Odilon ght Loss Management for Obese Patient (BMI >= 30) Inject 0.25 mg under the skin every 7 days 2 mL 11 5 026 Active lisinopriL (PRINIVIL,ZEST RIL) 5 mg tabletIndicati ons:Type 2 diabetes mellitus with hyperglycemia, with long-term current use of insulin ([facility]) TAKE 1 TABLET DAILY 90 tablet 1 5 Active NovoLOG 100 unit/mL vial for injectionIndic ations:Type 2 diabetes mellitus with hyperglycemia, with long-term current use of insulin ([facility]) INJECT UP TO 100 UNITS SUBCUTANEOUSLY DAILY VIA INSULIN PUMP 90 mL 2 5 Active Active Problems Problem Noted Date Diagnosed Date Class 1 obesity due to exces s calories with serious comorbidity and body mass index (BMI) of 30.0 to 30.9 in adult 07/23/2022 Assessment & Plan (07/23/2022 9:42 AM ENV[employer]ONMENTAL [employer]): Discussed healthy diet and importance of regular physical activity (20- 30min/day, 150min/wk). Other chest pain 01/25/2019 Abnormal stress test 12/21/2018 Hyperlipidemia associated with type 2 diabetes m tyleritus 10/02/2017 Assessment & Plan (03/15/2025 2:44 PM CDT): Chronic problem, not currently taking anything for statin. Statin intolerance. Praulent--too expensive. Last lipid panel: 06/18/24 IKJ=566, CY=981. Assessment & Plan (10/12/2024 11:50 AM CDT): Chronic problem, not currently taking anything for statin. Statin intolerance. Praulent--too expensive. Last lipid panel: 06/18/24 BSH=158, YD=925. Assessment & Plan (06/29/2024 10:21 AM ENVIRONMENTAL [employer]ATION PL[employer]NER): Chronic problem, not currently taking anything for statin. Last lipid panel: 03/25/23 JUZ=670, QU=035. Declines statin therapy. Recent labs at Dr Espinosa's office. Release signed to get copy of labs. Assessment & Plan (12/26/2023 9:43 AM CDT): Chronic problem, not currently taking anything for statin. Last lipid panel: 03/25/23 ECW=483, XU=889. Declines statin therapy. Assessment & Plan (07/15/2023 11:06 AM ENVIRONMENTAL [employer]ATION PL[employer]NER): Chronic problem, not currently taking anything for statin. Last lipid panel: 03/25/23 SEG=841, DW=241. Declines statin therapy. Discussed lifestyle changes to [...] mg/dL Assessment & Plan (03/25/2023 11:07 AM ENVIRONMENTAL [employer]ATION [employer]NER): Chronic problem, not currently taking anything for statin. Last lipid panel: 02/28/22 LDL=70, TG=88. Declines statin therapy. No changes at this time. Will update labs today. Verified that she uses [employer]. Aware to check results/results letter in [employer]. Will contact by phone if needed. Assessment & Plan (07/23/2022 10:09 AM ENVIRONMENTAL [employer]ATION [employer]NER): Chronic problem, well controlled on current Praulent 150mg every 14 days, Repatha 140mg every 14 days. Last lipid panel: 02/28/22 LDL=70, TG=88. Declines statin therapy. No changes at this time. Assessment & Plan (04/04/2022 2:55 PM ENVIRONMENTAL [employer]ATION [employer]NER): Chronic problem, statin intolerant but doing well with PCSK9i. Assessment & Plan (12/06/2021 2:48 PM CDT): Chronic problem. On Praluent now. Update lipid panel. Assessment & Plan (07/26/2021 11:48 AM ENVIRONMENTAL RESTORATION PL[employer]NER): Low cholesterol low fat diet Can not tolerate statins Will try to get report of cardiac cath done a few years ago, to see if there is evidence of CAD, to we can appeal the denial of Juliano by her insurance company Assessment & Plan (04/17/2021 2:55 PM ENVIRONMENTAL [employer]ATION PL[employer]NER): Severe Can not tolerate statins Will request [...] Simvastatin Assessment & Plan (07/25/2020 3:12 PM ENVIRONMENTAL [employer]ATION PL[employer]NER): Goal of treatment , LDL cholesterol less [...] 02/2020 Assessment & Plan (04/18/2020 4:38 PM ENVIRONMENTAL [employer]ATION PL[employer]NER): LDL above goal. Continue statin. Focus on [...] therapy Assessment & Plan (06/23/2018 4:01 PM ENVIRONMENTAL [employer]ATION PL[employer]NER): Goal of treatment , LDL cholesterol less [...] Insulin pump status 02/27/2017 Assessment & Plan (03/15/2025 2:44 PM CDT): Pump setting changes: -add 9a 3.2 units/hr -increased 530p from 3.95 to 4.0 units/hr -increased CF from 20 to 25 Blood sugars are persistently hyperglycemic 9a-2a Current medications: Farxiga 10mg daily Wegovy 0.25mg weekly--not yet started Novolog via Medtronic 780G BR 12a 2.65, 530a 3, 9a 3.2, 1p 3.3, 530p 4.0 CR 6 CF 25 Target 110 AIT 2 hours Assessment & Plan (10/12/2024 12:10 PM CDT): Pump setting changes: -increased 12a from 2.5 to 2.6 units/hr -increased 1p from 3.2 to 3.3 units/hr -increased 530p from 3.85 to 3.95 units/hr -decrease AIT from 2.5 to 2 hours Current medications: Farxiga 10mg daily Ozempic 0.25mg weekly--cannot tolerate 0.5mg Novolog via Medtronic 780G BR 12a 2.6, 530a 3, 1p 3.3, 530p 3.95 CR 6 CF 20 Target 110 AIT 2 hours Assessment & Plan (06/29/2024 10:10 AM ENVIRONMENTAL [employer]ATION PL[employer]NER): Pump setting changes: -increased 530p from 3.7 to 3.85 units/hr -lowered target from 120 to 110. -decrease AIT from 4hr 45min to 2.5 hours Current medications: Farxiga 10mg daily Ozempic 0.25mg weekly--cannot tolerate 0.5mg Novolog via Medtronic 780G BR 12a 2.5, 530a 3, 1p 3.2, 530p 3.85 CR 6 CF 20 Target 110 AIT 2.5 hours Assessment & Plan (12/26/2023 9:42 AM CDT): Pump setting changes: -change 6p to 530p and increased from 3.6 to 3.7 units/hr -lowered target from 140 to 120. Current medications: Farxiga 10mg daily Ozempic 0.25mg weekly Humalog via Medtronic 780G BR 12a 2.5, 530a 3, 1p 3.2, 530p 3.7 CR 6 CF 20 Target 120 Assessment & Plan (07/15/2023 11:04 AM ENVIRONMENTAL RESTORATION PL[employer]NER): Again asked her to try the Guardian sensor in place of the FSL to work the MM 780G to its full capacity. No pump setting changes. Assessment & Plan (03/25/2023 11:06 AM ENVIRONMENTAL RESTORATION PL[employer]NER): Asked her to try the Guardian sensor in place of the FSL to work the MM 780G to its full capacity. Assessment & Plan (07/23/2022 10:07 AM ENVIRONMENTAL [employer]ORATION PL[employer]NER): No pump setting changes today. Assessment & Plan (12/06/2021 2:49 PM CDT): No pump setting changes. Assessment & Plan (07/26/2021 11:49 AM ENVIRONMENTAL RESTORATION PL[employer]NER): Pt has insulin syringes and sample of Tresiba was given, she knows how to use it in case of insulin pump failure Assessment & Plan (04/18/2020 4:39 PM ENVIRONMENTAL [employer]ORATION PL[employer]NER): Add 1 pm basal at 3.7 Change [...] ) Assessment & Plan (07/24/2017 2:35 PM ENVIRONMENTAL [employer]ORATION PL[employer]NER): Alternate sites reviewed. OK to use abd even after abdominoplasty. Assessment & Plan (02/27/2017 10:56 AM CDT): D/t report of some overnight hypoglycemia sx, reduce MN basal to 3.35. No other changes. Instructed on use of temp basal feature. Type 2 diabetes mellitus wit h hyperglycemia, with long-term current use of insulin 08/10/2013 Overview (08/21/2016): DMII WO CMP UNCNTRLD Assessment & Plan (03/15/2025 2:48 PM CDT): Chronic problem, not at goal. A1c improved slightly from 8.7% 06/29/24 to now 8.3%. She's contacted [employer] re: [employer] CGM. reviewed dexcom & medtronic downloads with Anna. Look up mediterrean diet options. Start exercising with weights; will help you lose weight. Pump setting changes: -add 9a 3.2 units/hr -increased 530p from 3.95 to 4.0 units/hr -increased CF from 20 to 25 Blood sugars are persistently hyperglycemic 9a-2a Current medications: Farxiga 10mg daily Wegovy 0.25mg weekly--not yet started Novolog via Medtronic 780G BR 12a 2.65, 530a 3, 9a 3.2, 1p 3.3, 530p 4.0 CR 6 CF 25 Target 110 AIT 2 hours UTD on labs. UTD on DM eye exam (09/06/24 no DMR/DME [facility] [place]) Sedentary lifestyle. Strive for regular exercise (30min most days) and diet (get at least 4-5 servings of fruit and veggies daily, avoid processed foods, increase lean protein intake and decrease carb portions as well as fruit juices, regular soda & desserts). Watch carbs and simple sugars. Check the blood sugar Dexcom G7 Check the feet daily for skin breakdown and infection. Assessment & Plan (10/12/2024 12:14 PM CDT): Chronic problem, not at goal. A1c improved slightly from 8.7% 06/29/24 to now 8.3%. reviewed dexcom & medtronic downloads with Anna. Still going days without bolusing. Again discussed her to start bolusing more with intake or correctional bolus when you see blood sugar running high. Pump setting changes: -increased 12a from 2.5 to 2.6 units/hr -increased 1p from 3.2 to 3.3 units/hr -increased 530p from 3.85 to 3.95 units/hr -decrease AIT from 2.5 to 2 hours Current medications: Farxiga 10mg daily Ozempic 0.25mg weekly--cannot tolerate 0.5mg Novolog via Medtronic 780G BR 12a 2.6, 530a 3, 1p 3.3, 530p 3.95 CR 6 CF 20 Target 110 AIT 2 hours UTD on labs. UTD on DM eye exam (09/06/24 no DMR/DME [facility] [place]) Sedentary lifestyle. Strive for regular exercise (30min most days) and diet (get at least 4-5 servings of fruit and veggies daily, avoid processed foods, increase lean protein intake and decrease carb portions as well as fruit juices, regular soda & desserts). Watch carbs and simple sugars. Check the blood sugar Freestyle xenia 3. Check the feet daily for skin breakdown and infection. Assessment & Plan (06/29/2024 10:21 AM ENVIRONMENTAL [employer]ATION PL[employer]NER): Chronic problem, not at goal. A1c worsened from 7.9% 12/26/23 to now 8.7%. Still going days without bolusing. Again discussed her to start bolusing more with intake or correctional bolus when you see blood sugar running high. Pump setting changes: -increased 530p from 3.7 to 3.85 units/hr -lowered target from 120 to 110. -decrease AIT from 4hr 45min to 2.5 hours Current medications: Farxiga 10mg daily Ozempic 0.25mg weekly--cannot tolerate 0.5mg Novolog via Medtronic 780G BR 12a 2.5, 530a 3, 1p 3.2, 530p 3.85 CR 6 CF 20 Target 110 AIT 2.5 hours Will update MA/Cr today. Verified that she uses [employer]. Aware to check results/results letter in [employer]. Will contact by phone if needed. Recent labs at Dr Espinosa's office. Release signed to get copy of labs. DM eye exam (05/29/23)--2nd request letter [...] simple sugars. Check the blood sugar Freestyle xenia 3. Check the feet daily for skin breakdown and infection. Assessment & Plan (12/26/2023 9:41 AM CDT): [...] simple sugars. Check the blood sugar Freestyle xenia 3. Check the feet daily for skin breakdown and infection. Assessment & Plan (07/15/2023 11:04 AM ENVIRONMENTAL [employer]ATION PL[employer]NER): Chronic problem, now at goal. A1c improved [...] simple sugars. Check the blood sugar Freestyle xenia. Check the feet daily for skin breakdown and infection. Assessment & Plan (03/25/2023 11:14 AM ENVIRONMENTAL [employer]ATION PLANNER): Chronic problem, not at goal. Hyperglycemia. A1c [...] Will update labs. Verified that she uses [employer]. Aware to check results/results letter in [employer]. Will contact by phone if needed. UTD on DM eye exam. Strive for regular exercise (30min most days) and diet (get at least 4-5 servings of fruit and veggies daily, avoid processed foods, increase lean protein intake and decrease carb portions as well as fruit juices, regular soda & desserts). Watch carbs and simple sugars. Check the blood sugar Freestyle xenia--try the Guardian sensor. Check the feet daily [...] process Assessment & Plan (07/23/2022 10:07 AM ENVIRONMENTAL [employer]ATION PL[employer]NER): Chronic problem, not at goal. Hyperglycemia. Needs to start giving correctional boluses if not eating until 5p. Needs to check & give correctional bolus at HS. Has not been able to steel pickler Ozempic but has not tried any different pharmacy. Sample given, will start at 0.25mg weekly x 2 weeks the increase to 0.5mg weekly. Current medications: Farxiga 10 mg Omnipod with NL BR: 12am 2.5, 530 am 3.0, 1pm 3.2, 6pm 3.6 CR 6 CF 20 T 100 AIT 4H Assessment & Plan (04/04/2022 3:11 PM ENVIRONMENTAL [employer]ATION PLANNER): Chronic problem, not at goal. She continues [...] CMP. Assessment & Plan (07/26/2021 11:49 AM ENVIRONMENTAL RESTORATION PLANNER): Adequately controlled Continue pump at current settings rx for Ozempic 0.5 mg weekly was also sent. Assessment & Plan (04/17/2021 2:51 PM ENVIRONMENTAL RESTORATION PLANNER): Hba1c was Lab Results Component Value Date HGBA1C 7.2 04/17/2021 today, indicating suboptimal DM control Goal Hba1c and blood glucose explained Diet and exercise , discussed Prevention and treatment of hyypoglcyemia discussed. Blood glucose monitoring : DEXCOM Adjustment to oral medications: continue Farxiga New pump settings Basal rates 12am 2.5 530 am 3.0 1pm 3.2 6pm 3.6 T 100 IC 6 ISF 20 AIT 4H Restart Ozempic 0.5 mg weekly Pt to [...] Ozempic Assessment & Plan (07/25/2020 3:13 PM ENVIRONMENTAL RESTORATION PLANNER): Hba1c was Lab Results Component Value Date [...] Farxiga Assessment & Plan (04/18/2020 4:40 PM ENVIRONMENTAL RESTORATION PLANNER): A1c worsening at 9.9. Intensify CF and [...] provided with contact information for insulin pump denial management representative and how to reach our office [...] discussed. Assessment & Plan (06/23/2018 4:00 PM ENVIRONMENTAL RESTORATION PLANNER): Hba1c was Lab Results Component Value Date [...] 3.5 Assessment & Plan (07/24/2017 2:40 PM ENVIRONMENTAL RESTORATION PLANNER): A1c 7.3. Long discussion again encouraging to [...] better for her ) Hypertension associated with type 2 diabetes marco litus 04/27/2013 Overview (08/22/2016): HYPERTENSION NOS Assessment & Plan (03/15/2025 2:44 PM CDT): Chronic problem, well controlled on Lisinopril 5mg. No changes at this time. Assessment & Plan (10/12/2024 11:50 AM CDT): Chronic problem, well controlled on Lisinopril 5mg. No changes at this time. Assessment & Plan (06/29/2024 10:21 AM ENVIRONMENTAL RESTORATION PLANNER): Chronic problem, well controlled on Lisinopril 5mg. No changes at this time. Recent labs at Dr Espinosa's office. Release signed to get copy of labs. Assessment & Plan (12/26/2023 9:18 AM CDT): Chronic problem, well controlled on Lisinopril 5mg. No changes at this time. Assessment & Plan (07/15/2023 11:04 AM ENVIRONMENTAL RESTORATION PLANNER): Chronic problem, well controlled on Lisinopril 5mg. No changes at this time. Assessment & Plan (03/25/2023 11:07 AM ENVIRONMENTAL RESTORATION PLANNER): Chronic problem, well controlled on Lisinopril 5mg. No changes at this time. Will update labs. Verified that she uses [employer]. Aware to check results/results letter in [employer]. Will contact by phone if needed. Assessment & Plan (11/21/2022 4:27 PM CDT): Chronic, well controlled Continue Lisinopril Assessment & Plan (07/23/2022 10:09 AM ENVIRONMENTAL RESTORATION PLANNER): Chronic problem, well controlled on Lisinopril 5mg. No changes at this time. Assessment & Plan (04/04/2022 3:10 PM ENVIRONMENTAL RESTORATION PLANNER): Controlled on current medications, no changes. Assessment & Plan (12/06/2021 2:42 PM CDT): Controlled on current medications, no changes. Assessment & Plan (07/26/2021 11:47 AM ENVIRONMENTAL RESTORATION PLANNER): Chronic, well controlled Continue current meds Assessment & Plan (12/05/2020 3:19 PM CDT): Goal blood pressure is less than 140/85 Low salt diet was discussed andd recommended The importance of daily aerobic exercise was also emphasized. Continue current meds, including NETO-I or ARB, e.g. Lisinopril Assessment & Plan (07/25/2020 3:12 PM ENVIRONMENTAL RESTORATION PLANNER): Goal blood pressure is less than 140/85 Low salt diet was discussed andd recommended The importance of daily aerobic exercise was also emphasized. Continue current meds, including NETO-I or ARB, e.g. Neg microalbumin Assessment & Plan (04/18/2020 4:38 PM ENVIRONMENTAL RESTORATION PLANNER): Controlled on current medications. Continue plan. Assessment [...] ARB Assessment & Plan (06/23/2018 4:01 PM ENVIRONMENTAL RESTORATION PLANNER): Goal blood pressure is less than 140/85 [...] ARB Assessment & Plan (07/24/2017 2:36 PM ENVIRONMENTAL RESTORATION PLANNER): Controlled on current medications. Assessment & Plan (02/27/2017 9:56 AM CDT): Controlled on current medications. Continue lisinopril Assessment & Plan (12/05/2016 3:17 PM CDT): Goal blood pressure is less than 140/85 Low salt diet recommended Daily aerobic exercise Continue current meds, including NETO-I or ARB Resolved Problems Problem Noted Date Diagnosed Date Resolved Date Acute appendicitis 08/02/2020 Class 1 obesity due to exces s calories with body mass index (BMI) of 31.0 to 31.9 in adult 02/27/2017 07/23/2022 Assessment & Plan (03/17/2018 3:47 PM CDT): Restart Phentermine Assessment & Plan (07/24/2017 2:35 PM ENVIRONMENTAL RESTORATION PLANNER): Importance of following diet and exercising discussed. Assessment & Plan (02/27/2017 9:57 AM CDT): Diet and exercise discussed Non morbid obesity due to excess calories 12/05/2016 03/24/2023 Assessment & Plan (07/25/2020 3:20 PM ENVIRONMENTAL RESTORATION PLANNER): Diet and exercise Continue Phentermine Assessment & Plan (02/16/2019 12:32 PM CDT): Diet and exercise discussed Restart Phentermine Assessment & Plan (12/05/2016 3:53 PM CDT): Diet and exercise Will restart Phentermine Pure hypercholesterolemia 12/15/2012 Overview (08/22/2016): PURE HYPERCHOLESTEROLEM Assessment & Plan (07/24/2017 2:36 PM ENVIRONMENTAL RESTORATION PLANNER): Check lipid panel Assessment & Plan (02/27/2017 [...] Encounters Date Type Department Care Team Description 05/09/2025 [facility]phone [facility] of [address] [phone] Aure Schwartz, MELANIE Medtronic 03/15/2025 2:00 PM CDT Office Visit [facility]ocr[facility] [address] [place] [phone] Aure Schwartz, MELANIE Type 2 diabetes mellitus with hyperglycemia, with long-term current use of insulin (HCC) (Primary Dx); Hypertension associated with type 2 diabetes mellitus (HCC); Hyperlipidemia associated with type 2 diabetes mellitus (HCC); Insulin pump status 03/15/2025 Telephone [facility] [address] [place] [phone] Aure Schwartz, MELANIE Medical Clearance ([facility]) 02/24/[address] [facility] Special[facility] of [address] [phone] Aure Schwartz NP Prior Auth ([employer]) 02/21/2025 Orders Only [facility] Endocr[facility] [address] [place] [phone] Aure Schwartz, MELANIE Type 2 diabetes mellitus with hyperglycemia, with long-term current use of insulin (HCC) (Primary Dx); Class 1 obesity due to excess calories with serious comorbidity and body mass index (BMI) of 30.0 to 30.9 in adult from Last 3 Months Surgical History Surgery Date Site/Laterality Comments COMBINED ABDOMINOPLASTY AND LIPOSUCTION Medical History Medical History Date Comments Hypertension Hypertension Hyperlipidemia Hyperlipidemia Diabetes mellitus Diabetes Adiposity obesity Diabetes mellitus diabetes melli tus; Comments: uncontrolled Diabetes mellitus diabetes melli tus Hx Other Medical Claustrophobic; Comments: GFC 12/14/2013 - Hx Other Medical not claustropho bic; Comments: SWEET 03/29/2014 - Family History Medical History Relation Name Comments Heart disease Father Diabetes type II Other Family hist ory of Diabetes -Type II; Relation Name Status Comments Father Had CABG in his early 60s Other Social History Tobacco Use Types Packs/Day Years Used Date Smoking Tobacco: Never Smokeless Tobacco: Never Tobacco Cessation:Counseling Given: Not Answered Alcohol Use Standard Drinks/Week Comments Yes 0 [...] on file Legal Sex Female 6:46 PM ENVIRONMENTAL [employer]ATION [employer]NER Gender Identity Not on file Sexual Orientation Not on file Last Filed Vital Signs Vital Sign Reading Time Taken Comments Blood Pressure 114/60 03/15/2025 1:50 PM CDT Pulse 94 03/15/2025 1:50 PM CDT Temperature 36.7 C (98.1 F) 08/23/2020 10:58 AM CDT Respiratory Rate 18 03/15/2025 1:50 PM CDT Oxygen Saturation 95% 08/04/2020 8:13 AM CDT Inhaled Oxygen Concentration - - Weight 82.5 kg (181 lb 14.4 oz) 03/15/2025 1:50 PM CDT Height 162.6 cm (5' 4.02) 03/15/2025 1:50 PM CD T Body Mass Index 31.21 03/15/2025 1:50 PM CDT Plan of Treatment Health Maintenance Due Date Last Done Comments Breast Cancer Screening-Mammogram 1962 Cervical Cancer Screening 1962 Colon Cancer Screening-Colonoscopy 1962 Hepatitis C Screening 1962 DTaP/Tdap/Td Vaccine (1 - Tdap) 1973 Hepatitis B Screening 1980 Regular Well Visit/Exam 18-64 1980 Pneumococcal vaccine <65 (1 of 2 - PCV) 1981 Zoster Vaccine (1 of 2) 2012 Depression Screening 07/25/2021 07/25/2020, 09/21/2019, 02/16/2019, Additional history exists Influenza Vaccine (#1) 2025 Lipid Panel 06/18/2025 06/18/2024, 11/2022, 03/18/2022, Additional history exists eGFR 06/18/2025 06/18/2024, 11/2022, 03/18/2022, Additional history exists Albumin Creatinine Ratio, Urine 06/29/2025 06/29/2024, 03/25/2023, 04/04/2022, Additional history exists Foot Exam 06/29/2025 06/29/2024, 11/2022, 12/06/2021, Additional history exists Hemoglobin A1C 09/13/2025 03/15/2025, 12/18, 10/12/2024, Additional history exists Dilated Eye Exam 09/06/2026 09/06/2024, , 04/24/2021, Additional history exists Procedures Procedure Name Priority Date/Time Associated Diagnosis Comments POCT HEMOGLOBIN A1C Routine 03/15/2025 2 :10 PM CDT Type 2 diabetes mellitus with hyperglycemia, with long-term current use of insulin (HCC) POCT GLUCOSE Routine 03/15/2025 2:03 PM CDT Type 2 diabetes mellitus with hyperglycemia, with long-term current use of insulin (HCC) HM DIABETES EYE EXAM Routine 09/06/2024 ALBUMIN CREATININE RATIO, URINE Routine 06/29/2024 10:23 AM ENVIRONMENTAL [employer]ATION PL[employer]NER Type 2 diabetes mellitus with hyperglycemia, with long-term current use of insulin (HCC) COMPREHENSIVE METABOLIC PANEL Routine 06/18/2024 8:34 AM ENVIRONMENTAL [employer]ATION PL[employer]NER LIPID PANEL Routine 06/18/2024 8:34 AM ENVIRONMENTAL [employer]ATION PLANNER from Last 3 Months or Most Recently Relevant to Health Maintenance Results * (ABNORMAL) POCT hemoglobin A1c (03/15/2025 2:10 PM CDT) Pathologist [facility] Hemoglobin A1C, POC 8.7(A) 4.0 - 5.6 % Blood 03/15/2025 2:10 PM CDT Aure Schwartz FOREPART RASPER POINT OF CARE TEST ORDERA BLES Final Result * POCT glucose (03/15/2025 2:03 PM CDT) Pathologist [facility] Glucose Blood, POC 197 Normal Fasting 70 - 100, Random <200 mg/dL Blood 03/15/2025 2:03 PM CDT Aure Schwartz FOREPART RASPER POINT OF CARE TEST ORDERA BLES Final Result * DIABETES EYE EXAM (09/06/2024) Pathologist [facility] SCRIBED DIABETIC DILATED EYE EXAM Normal 09/06/2024 Historical Provider HEALTH MAINTENANCE Edited Result - Final * Albumin Creatinine Ratio, Urine (06/29/2024 10:23 AM ENVIRONMENTAL RESTORATION PLANNER) [facility] Albumin Ur 25.6 mg/L Comment: Interpretive Data No reference range established. Current interpretive data was last revised 2018. Creatinine Ur 167.6 mg/dL PRAVIN Comment: Interpretive Data No reference range established. Current interpretive data was last revised 2018. Albumin Creatinine Ratio, Ur 15 1 - 29 mg/g PRAVIN Urine 06/29/2024 10:2 3 AM ENVIRONMENTAL RESTORATION PLANNER 06/29/2024 2:57 PM ENVIRONMENTAL RESTORATION PLANNER Aure Schwartz FOREPART RASPER LAB URINE ORDERABLES Kanchan l Result PRAVIN [id number] Department [place] [address] * (ABNORMAL) Lipid panel (06/18/2024 8:34 AM ENVIRONMENTAL RESTORATION PLANNER) SCRIBED Cholesterol, Total 272(A) 0 - 200 EXTERNAL LAB SCRIBED HDL 64 >35 - NA EXTERNAL LAB SCRIBED LDL 181 <130 - NA EXTERNAL LAB SCRIBED Triglycerides 147 <150 - NA EXTERNAL LAB Blood 06/18/2024 8:34 AM ENVIRONMENTAL RESTORATION PLANNER Historical Provider MD LAB BLOOD ORDERABLES Edit ed Result - Final EXTERNAL LAB * (ABNORMAL) Comprehensive metabolic panel (06/18/2024 8:34 AM ENVIRONMENTAL RESTORATION PLANNER) SCRIBED Sodium 142 137 - 145 mmol/L EXTERNAL LAB SCRIBED Potassium 4.5 3.4 - 5.0 mmol/L EXTERNAL LAB SCRIBED Chloride 103 98 - 107 mmol/L EXTERNAL LAB SCRIBED Carbon Dioxide 28 22 - 30 mmol/L EXTERNAL LAB SCRIBED Anion Gap 11 4 - 12 mmol/L EXTERNAL LAB SCRIBED Urea Nitrogen (BUN) 11 7 - 17 mg/dl EXTERNAL LAB SCRIBED Creatinine 0.98 0.7 - 1.0 mg/dl EXTERNAL LAB SCRIBED Glucose 126(A) 65 - 110 mg/dl EXTERNAL LAB SCRIBED Calcium 9.7 8.4 - 10.2 mg/dl EXTERNAL LAB SCRIBED Bilirubin 0.5 0.2 - 1.3 mg/dl EXTERNAL LAB SCRIBED Plasma Protein 8.0 6.3 - 8.2 g/dl EXTERNAL LAB SCRIBED Albumin 4.4 3.5 - 5.1 g/dl EXTERNAL LAB SCRIBED Alkaline Phosphatase 85 38 - 126 Units/L EXTERNAL LAB SCRIBED Alanine Transaminase (ALT) 15 6 - 35 Units/L EXTERNAL LAB SCRIBED Aspartate Transaminase (AST) 33 14 - 36 Units/L EXTERNAL LAB SCRIBED eGFR 58 >=60 - NA EXTERNAL LAB Blood 06/18/2024 8:34 AM ENVIRONMENTAL RESTORATION PLANNER Historical Provider LAB BLOOD ORDERABLES Edit ed Result - Final EXTERNAL LAB from Last 3 Months or Most Recently Relevant to Health Maintenance Insurance [facility] PPO [facility] H[facility] Advance Directives For more information, please contact: [phone] * Full Code (Latest Code Status on File) Date Activated Date Inactivated Comments 08/03/2020 2:20 AM 08/04/2020 4:05 PM Care Teams Silo Man Relationship Specialty Start Date End Date Stuart Espinosa DO PCP - General 08/16/16 [place] [id number] [address] Consulting Physician Endocrinology Diabetes & Metabolism 06/18/18
--- OUTSIDE RECORDS SUMMARY | 2025-05-13 13:28 | XMS_ITS | Clinical Summary ---
Author Organization [facility] Address [address] [place] [address] Care Team Providers Care Oil Distributor Tender Name Role Phone No, Pcp FIXED INCOME PORTFOLIO MANAGER Primary Care Provider Unavailabl e Social History Tobacco Use Types Packs/Day Years Used Date Smoking Tobacco: Never Assessed Comments Unknown Sex and Gender Information Value Date Recorded Sex Assigned at Not on file Legal Sex Female 1:26 PM EDT Gender Identity Not on file Sexual Orientation Not on file Plan of Treatment Not on file Medical Devices Not on file Care Teams Oil Distributor Tender Relationship Specialty Start Date End Date No, Pcp, FIXED INCOME PORTFOLIO MANAGER N/A Do not use PCP - General Family Medicine 11/16/19
--- OUTSIDE RECORDS SUMMARY | 2025-05-13 13:28 | XMS_ITS | Encounter Summary ---
Author Organization [facility] Address [address] [facility] [place] [address] Care Team Providers Care Ethnographic Materials Conservator Name Role Phone Chris Jennings MD Primary Care Provider [phone] Encounter Details Date Type Department Care Team (Late st Contact Info) Description 12/08/2020 Lab Requisition [facility] [address] [facility] [facility] [place] [address] Benedict Oakley Jr., MD [address] [place] [address] Social History Tobacco Use Types Packs/Day Years Used Date Smoking Tobacco: Never Assessed Comments Unknown Sex and Gender Information Value Date Recorded Sex Assigned at Not on file Legal Sex Female 5:38 PM CHILD NUTRITION DIRECTOR Gender Identity Not on file Sexual Orientation Not on file documented as of this encounter Plan of Treatment Not on file documented as of this encounter Procedures Procedure Name Priority Date/Time Associated Diagnosis Comments DERMATOPATHOLOGY Routine 12/07/2020 12:0 0 AM CDT documented in this encounter Results * DERMATOPATHOLOGY (12/07/2020 12:00 AM CDT) Case Report Dermatopathology Report Case: [id number] Authorizing Provider: Benedict Oakley Jr., MD Collected: 12/07/2020 12:00 AM Ordering Location: [facility] Received: 12/08/2020 01:30 PM Pathologist: Cecelia Decker MD Specimen: Skin, right distal dorsal forearm 3:35 PM CDT DERMATOPATHOLOGY LABORATORY Final Diagnosis Specimen A. SKIN, right distal dorsal forearm: BASAL CELL CARCINOMA, NODULAR TYPE (C44.612) 3:35 PM CDT DERMATOPATHOLOGY LABORATORY at 1535 CDT Clinical History Inflamed seborrheic keratosis vs squamous cell carcinoma vs basal cell carcinoma. . 1 3:35 PM CDT DERMATOPATHOLOGY LABORATORY Gross Description Specimen A: Received is one formalin filled container labeled with the patient's name and designated right distal dorsal forearm. The specimen consists of a shave biopsy measuring [id number]. Jar 0. 3:35 PM CDT DERMATOPATHOLOGY LABORATORY Microscopic Description Specimen A. SKIN, right distal dorsal forearm: Within the dermis there are aggregates of basaloid cells with a high nuclear to cytoplasmic ratio and peripheral palisading. 3:35 PM CDT DERMATOPATHOLOGY LABORATORY Disclaimer An external and internal positive and negative controls are appropriate for the histochemical, immunohistochemical and immunofluorescence stain(s) in this case (if any), except where stated explicitly. The performance characteristics of the stain(s) cited in this report were developed and its performance characteristic determined by the Dermatopathology Laboratory at [facility], directed by Dr. Monique Felipe. These tests need not be, and therefore are not, approved by the [place] Food and Drug Administration. The tests are used for clinical purposes. Billing Codes Specimen Charges Stain Charges 86457 1 3:35 PM CDT DERMATOPATHOLOGY LABORATORY Embedded Images 3:35 PM CDT DERMATOPATHOLOGY LABORATORY Pathology/Cytolog y TISSUE SPECIMEN FROM SKIN / Unknown 12/07/2020 12/08/2020 1:30 PM CDT us Benedict Oakley Jr., MD LAB - PATHOLOGY/CYTOLOG Y ORDERABLES Final Result DERMATOPATHOLOGY LABORATORY [facility] - Department of Dermatology [address] [phone] documented in this encounter Visit Diagnoses Not on filedocumented in this encounter Care Teams Ethnographic Materials Conservator Relationship Specialty Start Date End Date Chris Jennings MD PCP - General 04/12/08 documented as of this encounter
--- OUTSIDE RECORDS SUMMARY | 2025-05-13 13:28 | XMS_ITS | Clinical Summary ---
Author Organization [facility] Address [facility] [place] [address] Care Team Providers Care Wafer Slicer Name Role Phone Junaid Katelyn Matt ANTOINEP Primary Care Provider [phone] Encounters Date Type Department Care Team Description 04/26/2025 11:04 AM ELDER COUNSELOR - 04/26/2025 11:59 PM ELDER COUNSELOR Hospital Encounter [facility] [address] [place] [address] Almaz Estrada MD Discharge Disposition: Home or Self Care (Routine Discharge) 04/26/2025 Travel from Last 3 Months Social History Tobacco Use Types Packs/Day Years Used Date Smoking Tobacco: Never Assessed Comments Unknown Sex and Gender Information Value Date Recorded Sex Assigned at Female 04/19/2025 3:44 PM ELDER COUNSELOR Legal Sex Female 3:43 PM ELDER COUNSELOR Gender Identity Not on file Sexual Orientation Not on file Plan of Treatment Health Maintenance Due Date Last Done Comments Cervical Cancer Screening Pa p Smear (Age 30 to 64) Every 3 Years 1962 Colorectal Cancer Screening Colonoscopy (10 Years) 1962 Annual Physical 1965 Hepatitis C 1980 DTaP, Tdap and Td Vaccines ( 1 - Tdap) 1981 Cervical Cancer Screening Pa p with HPV Testing (Age 30 to 64) Every 5 Years 1992 Cervical Cancer Screening with HPV 1992 Mammogram Screening 2002 Pneumococcal Vaccine: 50+ Ye ars (1 of 1 - PCV) 2012 Zoster Vaccines (1 of 2) 2012 COVID-19 Vaccine (2024-2 6 season) 2025 Influenza Adult (#1) 2025 RSV Immunization or 60+ Years (1 - 1-dose 75+ series) 2037 Hepatitis A Vaccines Aged Out No long er eligible based on patient's age to complete this topic Meningococcal B Vaccine Aged Out No l onger eligible based on patient's age to complete this topic Meningococcal Vaccine Aged Out No charlette kane eligible based on patient's age to complete this topic RSV Immunizations Under 20 Months Aged Out No longer eligible based on patient's age to complete this topic Procedures Procedure Name Priority Date/Time Associated Diagnosis Comments CT HEART SCREEN CALCIUM SCORE PROMO Routine 04/26/2025 11:29 AM ELDER COUNSELOR Healthcare maintenance from Last 3 Months Results * CT HEART SCREEN CALCIUM SCORE PROMO (04/26/2025 11:29 AM ELDER COUNSELOR) Anatomical Region Laterality Modality Chest Computed Tomogra phy 04/26/2025 1:06 PM ELDER COUNSELOR Impressions 04/26/2025 1:07 PM ELDER COUNSELOR =====IMPRESSION:===== Total Score: 34.3 Mild plaque, moderate risk, low likelihood of significant stenosis (<50%). Ordered By: ALMAZ ESTRADA Interpreted By: Lio Rosario MD, 04/26/2025 1:06 PM Narrative 04/26/2025 1:07 PM ELDER COUNSELOR [address] [address] EXAMINATION: Multislice Helical CT Coronary Calcium Scoring REASON FOR EXAM: Screening for heart disease COMPARISON: None TECHNIQUE: Multislice helical CT images of the proximal coronary arteries with a computer generated calcification score. A dose lowering technique was used for this procedure, which may include, but is not limited to, dose reduction technique, automated exposure control, iterative reconstruction, ALARA (As Low As Reasonably Achievable), or Image Gently techniques. Results: Left main: 33 LAD: 0.5 Circumflex: 0.5 Right coronary: 0.3 Total Score: 34.3 Comments: There is no mediastinal adenopathy, and there are no pulmonary nodules in the visualized portions of the chest. Calcium score guidelines: Total Score* Calcium Plaque [place] *Risk *Probability of significant CAD 0 No Plaque Very Low Very unlikely 1-10 Minimal Plaque Low Unlikely 11-100 Mild Plaque Moderate Low likelihood of significant stenosis <50% 101-400 Moderate Plaque Moderately High Moderate likelihood of significant stenosis (>50%) Over 400 Extensive Plaque High High likelihood of significant stenosis (>50%) The amount of coronary artery calcification correlates with the severity of coronary atherosclerosis and the probability of future significant event. Calcification is not site specific for stenosis and does not identify non-calcified atherosclerotic plaque, but rather indicates the extent of atherosclerosis in the coronary arteries overall. The score may be used as an indicator for risk factor modification or additional cardiac testing. Significant change in calcium score over time may be indicative of subsequent disease development or useful as a benchmark to assess preventative programs. Procedure Note Lio Rosario MD - 04/26/2025 [id number] [place] [address] EXAMINATION: Multislice Helical CT Coronary Calcium Scoring REASON FOR EXAM: Screening for heart disease COMPARISON: None TECHNIQUE: Multislice helical CT images of the proximal coronary arterieswith a computer generated calcification score. A dose lowering techniquewas used for this procedure, which may include, but is not limited to,dose reduction technique, automated exposure control, iterativereconstruction, ALARA (As Low As Reasonably Achievable), or Image Gentlytechniques. Results: Left main: 33 LAD: 0.5 Circumflex: 0.5 Right coronary: 0.3 Total Score: 34.3 Comments: There is no mediastinal adenopathy, and there are no pulmonarynodules in the visualized portions of the chest. Calcium score guidelines: Total Score* Calcium Plaque [place] *Risk *Probability ofsignificant CAD 0 No Plaque Very LowVery unlikely 1-10 Minimal Plaque LowUnlikely 11-100 Mild Plaque ModerateLow likelihood of significant stenosis <50% 101-400 Moderate Plaque Moderately HighModerate likelihood of significant stenosis (>50%) Over 400 Extensive Plaque HighHigh likelihood of significant stenosis (>50%) The amount of coronary artery calcification correlates with the severityof coronary atherosclerosis and the probability of future significantevent. Calcification is not site specific for stenosis and does notidentify non-calcified atherosclerotic plaque, but rather indicates theextent of atherosclerosis in the coronary arteries overall. The score may be used as an indicator for risk factor modification oradditional cardiac testing. Significant change in calcium score over timemay be indicative of subsequent disease development or useful as abenchmark to assess preventative programs. =====IMPRESSION:===== Total Score: 34.3 Mild plaque, moderate risk, low likelihood ofsignificant stenosis (<50%). Ordered By: ALMAZ ESTRADA Interpreted By: Lio Rosario MD, 04/26/2025 1:06 PM us Almaz Estrada MD CT Final Res ult from Last 3 Months [place] [address] Care Teams Wafer Slicer Relationship Specialty Start Date End Date Katelyn Quiroga FNP [address] [facility] [facility] [facility] [address] [place] [address] PCP - General CLINICAL NURSE SPECIALIST 04/19/25
== END 2025-05-13 13:25 | disposition home or self-care (01) ==
PROVIDERS: PCP Internal Medicine; Visit Provider Clinical Nurse Specialist
DX: M47.22 Other spondylosis with radiculopathy, cervical region (principal)
CPT/HCPCS: 72141